=== PATIENT | male | born 1935 | race Caucasian/White ===

== ENCOUNTER 2021-06-13 10:53 | Emergency (ER) | payer MEDICARE, OTHER, SELFPAY ==
--- NOTE | ~2021-06-13 | XR_ITS ---
EXAMINATION: XR chest 2V EXAM DATE: 06/13/2021 11:30 INDICATION: Cough and fever. TECHNIQUE: Frontal and lateral projections of the chest obtained and reviewed. Comparison is made to prior examination from 01/28/2019. FINDINGS: Some scattered regions of post infectious residua suspected. No acute airspace disease. T here are no pleural effusions. The cardiomediastinal silhouette is within normal limits. There is n o pneumothorax suspected. Mild thoracic spondylosis. There is no significant interval change. IMPRESSION: No acute cardiopulmonary findings. Follow-up can be obtained if symptoms persist. Reviewed, dictated and finalized at location G. IMPRESSION: No acute cardiopulmonary findings. Follow-up can be obtained if sy mptoms persist.
[2021-06-13 11:02] VITALS: BP 106/61; PULSE 60; RESP 18; TEMP 37.1; O2SAT 98
--- NOTE | 2021-06-13 11:32 | ED.GENADULT ---
HPI - General Adult General Chief complaint: Upper Respiratory Infection Stated complaint: HEADACHE/CHEST CONGESTION/COUGH Time Seen by Provider: 06/13/21 11:20 Source: patient, family (spouse) and RN notes reviewed Mode of arrival: ambulatory Limitations: no limitations History of Present Illness HPI narrative: 85-year-old male presents with complains of dry cough and chest congestion, sneezing, sweats, and intermittent headache (not the worst of his life) for the past 2 days. [place] reports increasing symptoms this morning at approximately 05:30AM with temperature. Ibuprofen, last this morning with some relief. Cough with intermittent productive cough (green-yellow phlegm). No rhinorrhea. Nasal congestion. Denies sore throat. Fevers, highest 100.8F, orally with intermittent sweats. No drooling, neck or throat swelling. No chest pain, wheezing, or shortness of breath. Denies nausea, vomiting, and abdominal pain. Tolerating liquids well. Remains active. The patient reports he has not been diagnosed with COVID-19. The patient reports he received 2 [employer] COVID-19 vaccines. The patient reports he is not waiting for the results of a COVID-19 lab test. The patient reports he does not have weakness, fatigue, or myalgia. The patient reports he does not have any loss of smell or taste and diarrhea. Denies recent traveling. Denies concerns for COVID-19 or exposures. At this time, the patient is not suspected of having COVID-19. Some parts of this dictation were generated by voice recognition software and may contain typographical and/or grammatical inaccuracies. Related Data Home Medications Medication Instructions Recorded Confirmed Bacillus coagulans 10 billion cell 10 cell PO POST-TRANSFUSION 11/26/19 06/13/21 capsule,delayed release ascorbate calcium (vitamin C) 500 500 mg PO DAILY 11/26/19 06/13/21 mg tablet aspirin 81 mg tablet,delayed 81 mg PO DAILY 11/26/19 06/13/21 release calcium citrate 250 mg PO DAILY 11/26/19 06/13/21 cholecalciferol (vitamin D3) 25 1,000 unit PO DAILY 11/26/19 06/13/21 mcg (1,000 unit) capsule cyanocobalamin (vitamin B-12) 500 500 mcg PO DAILY 11/26/19 06/13/21 mcg tablet docusate sodium 100 mg capsule 100 mg PO .every other day cap 11/26/19 06/13/21 omega-3 fatty acids-fish oil 684 1 cap PO DAILY 11/26/19 06/13/21 mg-1,200 mg capsule,delayed release Allergies Allergy/AdvReac Type Severity Reaction Status Date / Time No Known Allergies Allergy Verified 06/13/21 11:12 Review of Systems Review of Systems: Narrative: CONSTITUTIONAL: Denies chills, fatigue. Complains of sweats, low-grade fever. EYES: Denies visual changes, redness, discharge. ENT: Complains of congestion. Denies rhinorrhea, sore throat, otalgia. CARDIOVASCULAR: Denies chest pain, palpitations, edema. RESPIRATORY: Denies dyspnea, wheezing. Complains of dry cough, chest congestion. GASTROINTESTINAL: Denies abdominal pain, nausea, vomiting, diarrhea. GENITOURINARY: Denies dysuria, hematuria, abnormal discharge. SKIN: Denies rash or itching. MUSCULOSKELETAL: Denies acute back pain, joint pain, or myalgia. NEUROLOGIC: Denies numbness or focal weakness. Complaints of FARIAS. PSYCHIATRIC: Denies anxiety or depression. All systems reviewed & are unremarkable except as noted in HPI and below. 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
== END 2021-06-13 12:04 | disposition home or self-care (01) ==
PROVIDERS: Emergency Provider Nurse Practitioner Family; PCP Family Medicine
DX: J06.9 Acute upper respiratory infection, unspecified (principal); H26.9 Unspecified cataract; Z86.73 Personal history of transient ischemic attack (TIA), and cerebral infarction without residual deficits; G47.30 Sleep apnea, unspecified; H40.9 Unspecified glaucoma
CPT/HCPCS: 71046; 99213; G0463

== ENCOUNTER 2021-06-18 10:52 | Outpatient (CLI) | payer MEDICARE, OTHER, SELFPAY ==
[2021-06-18 11:14] LABS: Basophils Percent Auto 0.2 % (0.2-1.2); Eosinophils Percent Auto 0.8 % (0-4.4); Hematocrit 38.3 % (42.0-52.0); Hemoglobin 13.1 g/dL (14.0-18.0); Immature Granulocyte Absolute 0.01 K/mm3 (0.00-0.031); Immature Granulocyte Percent A 0.2 % (0-0.5); Lymphocytes Absolute Auto 1.71 K/mm3 (0.9-3.2); Lymphocytes Percent Auto 33.4 % (18.3-44.2); Mean Corpuscular HGB Conc 34.2 g/dl (32-36); Mean Corpuscular Hemoglobin 33.7 pg (26-34); Mean Corpuscular Volume 98.5 fl (80-100); Mean Platelet Volume 9.5 fl (7.4-10.4); Monocytes Absolute Auto 0.4 K/mm3 (0.1-0.6); Monocytes Percent Auto 7.2 % (2.6-8.5); Neutrophils Percent Auto 58.2 % (45.5-73.1); Platelet Count Result 152 k/mm3 (150-375); Red Blood Count 3.89 M/mm3 (4.6-6.20); Red Cell Distribution Width 12.5 % (11.5-14.5); White Blood Count 5.1 K/mm3 (4.5-10.0)
[2021-06-18 11:30] LABS: Alanine Aminotransferase 14 U/L (4-50); Albumin Level 3.9 g/dL (3.5-5.1); Alkaline Phosphatase 69 U/L (38-126); Anion Gap 4 mmol/L (8-16); Aspartate Amino Transferase 30 U/L (17-59); Bilirubin,Total 0.8 mg/dL (0.2-1.3); Blood Urea Nitrogen 15 mg/dL (9-20); Calcium 9.3 mg/dL (8.4-10.2); Carbon Dioxide 33 mmol/L (22-30); Chloride 103 mmol/L (98-107); Estimated Glomerular Filt Rate > 60; Glucose 87 mg/dL (65-110); Potassium 4.1 mmol/L (3.4-5.0); Sodium 140 mmol/L (137-145)
== END 2021-06-18 10:53 | disposition home or self-care (01) ==
LOC: ANHLAB 10:54
PROVIDERS: PCP Family Medicine; Visit Provider Physician Assistant
DX: G47.33 Obstructive sleep apnea (adult) (pediatric) (principal); J06.9 Acute upper respiratory infection, unspecified
CPT/HCPCS: 36415; 80053; 85025

== ENCOUNTER 2021-12-03 07:45 | Outpatient (CLI) | payer MEDICARE, OTHER, SELFPAY ==
[2021-12-03 08:14] LABS: Hematocrit 40.8 % (42.0-52.0); Hemoglobin 14.2 g/dL (14.0-18.0); Mean Corpuscular HGB Conc 34.8 g/dl (32-36); Mean Corpuscular Hemoglobin 34.9 pg (26-34); Mean Corpuscular Volume 100.2 fl (80-100); Mean Platelet Volume 9.6 fl (7.4-10.4); Platelet Count Result 174 k/mm3 (150-375); Red Blood Count 4.07 M/mm3 (4.6-6.20); Red Cell Distribution Width 12.6 % (11.5-14.5); White Blood Count 4.2 K/mm3 (4.5-10.0)
[2021-12-03 08:26] LABS: Alanine Aminotransferase 16 U/L (4-50); Albumin Level 3.9 g/dL (3.5-5.1); Alkaline Phosphatase 71 U/L (38-126); Anion Gap 4 mmol/L (8-16); Aspartate Amino Transferase 26 U/L (17-59); Bilirubin,Total 0.6 mg/dL (0.2-1.3); Blood Urea Nitrogen 20 mg/dL (9-20); Calcium 9.3 mg/dL (8.4-10.2); Carbon Dioxide 30 mmol/L (22-30); Chloride 104 mmol/L (98-107); Cholesterol 132 mg/dL (0-200); Estimated Glomerular Filt Rate > 60; Glucose 101 mg/dL (65-110); HDL Direct 43 mg/dL; Potassium 3.6 mmol/L (3.4-5.0); Sodium 138 mmol/L (137-145); Triglycerides 71 mg/dL (<150)
[2021-12-03 08:37] LABS: LDL Cholesterol Direct 71 mg/dL
[2021-12-03 08:48] LABS: Add Urine Microscopic? YES; Appearance Urine Clear (Clear); Bilirubin Urine Negative (Negative); Blood Urine Negative (Negative); Color Urine Yellow (Yellow); Glucose Urine UA Negative (Negative); Ketones Urine Negative (Negative); Leukocyte Esterase Ur Negative LEU/UL (NEGATIVE); Nitrate Urine Negative (Negative); Protein Urine Negative (Negative); RBC Urine 0-2 /hpf (0-2); Specific Grav Ur 1.016 (1.001-1.035); Urobilinogen Urine Negative mg/dL (<2.0); WBC Urine 0-3 /hpf (0-3)
== END 2021-12-03 07:46 | disposition home or self-care (01) ==
LOC: ANHLAB 07:50
PROVIDERS: PCP Family Medicine; Visit Provider Family Medicine
DX: D64.9 Anemia, unspecified (principal); G47.33 Obstructive sleep apnea (adult) (pediatric); R53.83 Other fatigue; E78.5 Hyperlipidemia, unspecified
CPT/HCPCS: 36415; 80053; 80061; 81001; 84443; 85027

== ENCOUNTER 2021-12-15 08:19 | Outpatient (CLI) | payer MEDICARE, OTHER, SELFPAY ==
--- NOTE | ~2021-12-15 | MR_ITS ---
EXAMINATION: MR brain IAC wo/w con EXAM DATE: 12/15/2021 10:56 INDICATION: R51.9 - Headache, unspecified TECHNIQUE: Multi-sequential, multiplanar MR images of the brain, brainstem, internal auditory canals were obtained without contrast. Whole brain sagittal T1, axial diffusion, gradient echo (T2*), T1, T 2, FLAIR sequences obtained. High resolution coronal 3-D FIESTA, coronal T1 FSE, axial T1 FSPGR of t he internal auditory canals. Patient was then injected with 16 cc Multihance contrast intravenously. Postcontrast axial and coronal T1 weighted whole brain, axial and coronal high resolution T1 IAC seq uences obtained. Comparison is made to prior examination from 03/19/2016. FINDINGS: No evidence of mastoid or middle ear opacification. The 7th/8th cranial nerve complexes a re symmetric, normal in course and caliber. No cerebellopontine angle masses. Posterior fossa unrem arkable. Mild microangiopathy. There are no areas of restricted diffusion to suggest acute infarction. There is no acute hemorrhage seen on the T2*, a hemosiderin sensitive sequence. No intraparenchymal brain mass. The ventricles are normal in size. There are no extra-axial collections. Flow voids are seen in the cerebral arteries on the T2-weighted sequences consistent with their expected patency. The or bits are unremarkable. Soft tissue is unremarkable. There are no areas of abnormal enhancement on the postcontrast images. There is chronically opacified right sphenoid sinus, was opacified on prior study. Correlating with a CT scan from 2019 there is sinus wall thickening, another indication that this is chronic. Could be a mucocele. Uncertain whether or not this could be causing patient's headaches. IMPRESSION: 1. Chronic right sphenoid sinusitis or mucocele. 2. No acute intracranial findings. Reviewed, dictated and finalized at location A. [employer]
== END 2021-12-15 08:20 | disposition home or self-care (01) ==
LOC: ANHIMG 08:29
PROVIDERS: PCP Family Medicine; Visit Provider Internal Medicine Critical Care Medicine
DX: R51.9 Headache, unspecified (principal); J32.3 Chronic sphenoidal sinusitis
CPT/HCPCS: 70553; A9577

== ENCOUNTER 2023-01-15 08:12 | Outpatient (CLI) | payer MEDICARE, OTHER, SELFPAY ==
[2023-01-15 09:19] LABS: Add Urine Microscopic? NO; Appearance Urine Clear (Clear); Bilirubin Urine Negative (Negative); Blood Urine Negative (Negative); Color Urine Yellow (Yellow); Glucose Urine UA Negative (Negative); Hematocrit 39.1 % (42.0-52.0); Hemoglobin 13.3 g/dL (14.0-18.0); Ketones Urine Negative (Negative); Leukocyte Esterase Ur Negative LEU/UL (NEGATIVE); Mean Corpuscular Hemoglobin 33.2 pg (26-34); Mean Corpuscular Volume 97.5 fl (80-100); Mean Platelet Volume 10.3 fl (7.4-10.4); Nitrate Urine Negative (Negative); Platelet Count Result 186 k/mm3 (150-375); Protein Urine Negative (Negative); Red Blood Count 4.01 M/mm3 (4.6-6.20); Red Cell Distribution Width 12.7 % (11.5-14.5); Specific Grav Ur 1.015 (1.001-1.035); Urobilinogen Urine 0.2 mg/dL (<2.0); White Blood Count 4.3 K/mm3 (4.5-10.0); pH Urine 6.5 (5.0-9.0)
[2023-01-15 09:34] LABS: Alanine Aminotransferase 20 U/L (6-50); Albumin Level 3.8 g/dL (3.5-5.1); Alkaline Phosphatase 68 U/L (38-126); Anion Gap 2 mmol/L (8-16); Aspartate Amino Transferase 34 U/L (17-59); Bilirubin,Total 0.7 mg/dL (0.2-1.3); Blood Urea Nitrogen 16 mg/dL (9-20); Calcium 9.1 mg/dL (8.4-10.2); Carbon Dioxide 31 mmol/L (22-30); Chloride 107 mmol/L (98-107); Cholesterol 141 mg/dL (0-200); Estimated Glomerular Filt Rate > 60; Glucose 98 mg/dL (65-110); HDL Direct 45 mg/dL; Potassium 4.2 mmol/L (3.4-5.0); Sodium 140 mmol/L (137-145); Triglycerides 79 mg/dL (<150)
[2023-01-15 09:44] LABS: LDL Cholesterol Direct 69 mg/dL
== END 2023-01-15 08:13 | disposition home or self-care (01) ==
LOC: ANHLAB 08:19
PROVIDERS: PCP Family Medicine; Visit Provider Physician Assistant
DX: G47.33 Obstructive sleep apnea (adult) (pediatric) (principal); G47.52 REM sleep behavior disorder; G89.29 Other chronic pain; R51.9 Headache, unspecified; E78.5 Hyperlipidemia, unspecified; R53.83 Other fatigue
CPT/HCPCS: 36415; 80053; 80061; 81003; 84443; 85027

== ENCOUNTER 2023-01-17 10:56 | Outpatient (CLI) | payer MEDICARE, OTHER, SELFPAY ==
--- NOTE | ~2023-01-17 | XR_ITS ---
Thoracic spine: Clinical Indication: Back pain AP and lateral views were performed. Minimal anterior wedging deformities of T7 and T12 noted. No subluxation identified. The intervertebr al disc spaces appear normal. Paravertebral soft tissues appear normal. Impression: Minimal anterior wedging deformities of T7 and T12. Reviewed, dictated and finalized at [facility]. OPERATOR Impression: Minimal anterior wedging deformities of T7 and T12.
== END 2023-01-17 10:57 | disposition home or self-care (01) ==
PROVIDERS: PCP Family Medicine; Visit Provider Family Medicine
DX: M48.54XA Collapsed vertebra, not elsewhere classified, thoracic region, initial encounter for fracture (principal); M54.6 Pain in thoracic spine
CPT/HCPCS: 72070

== ENCOUNTER 2023-03-14 14:41 | Outpatient (CLI) | payer MEDICARE, OTHER, SELFPAY ==
--- NOTE | ~2023-03-14 | DEXA_ITS ---
Bone Density Report Name: KRISTOPHER JOHNSON Age: 87 Sex: Male Ethnicity: White Date of : 1935 Indication: screening for osteoporosis; height loss; prior fracture; Referring Provider: RAJENDRA OVALLE Study: Bone densitometry was performed. Exam Date: March 14, 2023 Accession number: [id number] Bone Density: Region BMD T-score Z-score Classification AP Spine(L1-L4) 0.967 -1.1 0.2 Osteopenia Femoral Neck (Left) 0.650 -2.1 -0.4 Osteopenia Total Hip (Left) 0.757 -1.8 -0.6 Osteopenia Femoral Neck (Right) 0.620 -2.3 -0.6 Osteopenia Total Hip (Right) 0.681 -2.3 -1.1 Osteopenia Total Hip Mean 0.719 -2.1 -0.9 Osteopenia World Health Organization criteria for BMD impression classify patients as: Normal (T-score at or above -1.0), Osteopenia (T-score between -1.0 and -2.5), or Osteoporosis (T-score at or below -2.5). 10-year Fracture Risk: FRAX not reported because: Prior hip or vertebral fracture Clinical Information Provided by Patient: Have had a previous hip or vertebral fracture Has had a low trauma fracture Has used the following medications: Vitamin D, Calcium Patient maximum height was 74 Does not regularly consume dairy products Impression: The patient has low bone mass, based on the Right Total Hip T-score. The patient has risk factors, including: previous fracture. Discussion: INCREASED RISK OF FRACTURE DUE TO HISTORY OF LOW TRAUMA FRACTURE. The patient's previous fracture puts the patient at high risk of a future fracture. In untreated patients, the risk of osteoporotic fracture increases approximately two-fold for each 1.0 SD decrease in T-score. Low bone density is not the only risk factor for fracture; also consider factors such as patient's age, frailty or poor health, risk of falling, risk of injury, previous osteoporotic fracture, family history of osteoporosis, cigarette smoking, low body weight, etc. Not everyone with a low trauma fracture has osteoporosis; osteomalacia and other metabolic bone disorders should also be considered. Patients who have osteoporosis should be evaluated for specific diseases and conditions (secondary causes) that may cause or contribute to bone loss and fracture risk. National Osteoporosis Foundation (NOF) recommends pharmacologic intervention for patients with a prior low trauma hip or vertebral fracture regardless of BMD T-score. The patient should follow a healthful lifestyle (good nutrition with adequate calcium and vitamin D, and appropriate weight-bearing exercise). Follow-Up: Consider a repeat BMD and Vertebral Fracture Assessment (VFA) exam in 2 years or sooner if medically necessary, to reassess this patient's status. Reported by: AMINA on 03/14/2023 3:00:00 PM. Mandi, arcelia
== END 2023-03-14 14:42 | disposition home or self-care (01) ==
LOC: ANHIMG 14:42
PROVIDERS: PCP Family Medicine; Visit Provider Family Medicine
DX: Z13.820 Encounter for screening for osteoporosis (principal); M85.89 Other specified disorders of bone density and structure, multiple sites
CPT/HCPCS: 77080

== ENCOUNTER 2023-03-23 09:16 | Outpatient (CLI) | payer MEDICARE, OTHER, SELFPAY ==
[2023-03-23 10:06] LABS: Alanine Aminotransferase 26 U/L (6-50); Alkaline Phosphatase 64 U/L (38-126); Anion Gap 2 mmol/L (8-16); Aspartate Amino Transferase 39 U/L (17-59); Bilirubin,Total 0.8 mg/dL (0.2-1.3); Blood Urea Nitrogen 18 mg/dL (9-20); Calcium 9.2 mg/dL (8.4-10.2); Carbon Dioxide 34 mmol/L (22-30); Chloride 103 mmol/L (98-107); Estimated Glomerular Filt Rate > 60; Glucose 101 mg/dL (65-110); Sodium 139 mmol/L (137-145)
== END 2023-03-23 09:17 | disposition home or self-care (01) ==
PROVIDERS: PCP Family Medicine; Visit Provider Physician Assistant
DX: M81.0 Age-related osteoporosis without current pathological fracture (principal)
CPT/HCPCS: 36415; 80053

== ENCOUNTER 2023-10-26 00:36 | Day surgery (SDC) | payer MEDICARE, OTHER, SELFPAY ==
[2023-10-21 09:28] VITALS: BMI 24.9
--- NOTE | 2023-10-24 10:37 | SUR.PREOP ---
Patient called regarding upcoming procedure. Reviewed preop instructions, appointment times, and procedure prep.
[2023-10-26 09:58] VITALS: BMI 24.4
[2023-10-26] MEDS: LACTATED RINGERS 1,000 ML 150 ML IV CONT (10:09)
--- NOTE | 2023-10-26 10:31 | WPDANESEPPF ---
Anes - Initial Pre Proc Eval Procedure: Operation Date: 10/26/23 10:30 Proposed Procedures p Esophagogastroduodenoscopy - Sp Jones MD Date/Time: 10/26/23 10:31 Surgeon: Sp Jones MD Pre Op Diagnosis: Dysphagia Patient Data Age: 88 Gender: M Height: 1.85 m Weight: 84 kg Allergies Allergy/AdvReac Type Severity Reaction Status Date / Time No Known Allergies Allergy Verified 10/26/23 09:41 Home Medications Medication Instructions Recorded Confirmed Type Bacillus coagulans 10 billion cell 10 cell PO POST-TRANSFUSION 11/26/19 10/26/23 History capsule,delayed release (Probiotic (B. coagulans)) ascorbate calcium (vitamin C) 500 500 mg PO DAILY 11/26/19 10/26/23 History mg tablet aspirin 81 mg tablet,delayed 81 mg PO DAILY 11/26/19 10/26/23 History release (Adult Aspirin Regimen) cyanocobalamin (vitamin B-12) 500 500 mcg PO DAILY 11/26/19 10/26/23 History mcg tablet (Vitamin B-12) docusate sodium 100 mg capsule 100 mg PO .every other day 11/26/19 10/26/23 History (Stool Softener) latanoprost 0.005 % eye drops 1 drop ophthalmic (eye) QPM #2.5 mL 11/26/19 10/26/23 Rx omega-3 fatty acids-fish oil 684 1 cap PO DAILY 11/26/19 10/26/23 History mg-1,200 mg capsule,delayed release cholecalciferol (vitamin D3) 25 1,000 unit PO BID 07/05/23 10/26/23 History mcg (1,000 unit) capsule magnesium 250 mg tablet 250 mg PO DAILY 07/05/23 10/26/23 History vit C 50 mg-E 15 unit-zinc cit 4.5 2 tablet PO DAILY 07/05/23 10/26/23 History mg-lutein 2.5 mg-zeaxan chew tablet (OcuvSnappy Chow [facility]) alendronate 70 mg tablet 70 mg PO WEEKLY #12 tabs 08/24/23 10/26/23 Rx clonazepam 1 mg tablet 1 mg PO QHS 90 days #90 tabs 08/26/23 10/26/23 Rx Patient hx anesthesia problems: none Family hx anesthesia problems: none Results Review: All pre-operative results and documents have been reviewed as part of the pre-operative evaluation. 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 Family History Family History Sibling Family history of cardiovascular disease Family history of malignant neoplasm Family history of malignant neoplasm of brain Mother Family history of Alzheimer's disease Migraines Father Family history of malignant neoplasm of kidney Grandparent Family history of malignant neoplasm of stomach Sibling Family history of malignant neoplasm of brain Family history of osteoporosis Acute myocardial infarction Family history of malignant neoplasm Family history of dementia Father Family history of malignant neoplasm of kidney Social History Social History Smoking status: Never smoker Second hand tobacco smoke exposure: Yes Alcohol intake: current Drinks per week: 1 Alcohol use details: at [employer] Substance use: never Substance use type: does not use Living arrangements: with family Occupation/Education: retired Gender identity (if verbalized by the patient): Male Sexual Orientation (if Verbalized by the Patient): Straight or Heterosexual Spiritual care concerns: No Anes - Eval Final PreProcedure Day of Procedure 10/26/23 10:31 Patient weight: normal Heart: bradycardia Lungs: clear to auscultation Neurological: alert and orie
--- NOTE | 2023-10-26 10:33 | PM.HPGS ---
History of Present Illness History of Present Illness Consent: Risks, benefits, and alternatives have been discussed and questions answered. Patient agrees to proceed with procedure. Chief complaint: Dysphagia Narrative: Jey Colón is a 88 year old male with intermittent dysphagia for years, never had egd Review of Systems Constitutional: Constitutional: Denies headache(s) and Denies weakness Eyes: Eyes: Denies blurry vision ENT: Reports Normal hearing present, Denies headache(s) and Denies neck pain Cardiovascular: Cardiovascular: Denies chest pain and Denies dyspnea Respiratory: Respiratory: Denies dyspnea Gastrointestinal: Gastrointestinal: Reports no additional gastrointestinal complaints Genitourinary: Genitourinary: Denies dysuria Musculoskeletal: Musculoskeletal: Denies neck pain Integumentary/Breasts: Skin/Breast: Denies dry skin Neurologic: Reports Normal hearing present, Denies headache(s) and Denies weakness Psychiatric: Psychiatric: Denies anxiety Endocrine: Endocrine: Denies change in body appearance Hematologic/Lymphatic: Hematologic/Lymphatic: Denies easy bleeding Allergic/Immunologic: Allergic/Immunologic: Denies urticaria [facility] Past Medical History Medical History (Updated 10/26/23 @ 10:34 by Sp Jones MD) Cataract Chronic headache disorder Dysphagia Family history of prostate problems Glaucoma H/O TIA (transient ischemic attack) and stroke MARCO (obstructive sleep apnea) CPAP REM behavioral disorder Surgical History Surgical History History of adenoidectomy History of hernia surgery umbilical X2 and bilateral groin History of tonsillectomy History of transurethral resection of prostate Hx of sinus surgery 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 Family History Family History Sibling Family history of cardiovascular disease Family history of malignant neoplasm Family history of malignant neoplasm of brain Mother Family history of Alzheimer's disease Migraines Father Family history of malignant neoplasm of kidney Grandparent Family history of malignant neoplasm of stomach Sibling Family history of malignant neoplasm of brain Family history of osteoporosis Acute myocardial infarction Family history of malignant neoplasm Family history of dementia Father Family history of malignant neoplasm of kidney Social History Social History Smoking status: Never smoker Second hand tobacco smoke exposure: Yes Alcohol intake: current Drinks per week: 1 Alcohol use details: at [employer] Substance use: never Substance use type: does not use Living arrangements: with family Occupation/Education: retired Gender identity (if verbalized by the patient): Male Sexual Orientation (if Verbalized by the Patient): Straight or Heterosexual Spiritual care concerns: No Meds Home Medications and Allergies Home Medications Medication Instructions Recorded Confirmed Type Bacillus coagulans 10 billion cell 10 cell PO POST-TRANSFUSION 11/26/19 10/26/23 History capsule,delayed release (Probiotic (B. coagulans)) ascorbate calcium (vitamin C) 500 500 mg PO DAILY 11/26/19 10/26/23 History mg tablet aspirin 81 mg tablet,delayed 81 mg PO DAILY 11/26/19 10/26/23 History release (Adult Aspirin Regimen) cyanocobalamin (vitamin B-12) 500 500 mcg PO DAILY 11/26/19 10/26/23 History mcg tablet (Vitamin B-12) docusate sodium 100 mg capsule 100 mg PO .every other day 11/26/19 10/26/23 History (Stool Softener) latanoprost 0.005 % eye drops 1 drop ophthalmic (eye) QPM #2.5 mL 11/26/19 10/26/23 Rx omega-3 fatty acids-fish oil 684 1 cap PO DAILY 11/26/19 10/26/23 History mg-1,200 mg capsule,delayed release cholecalciferol (vitamin D3)
[2023-10-26 10:49] VITALS: BP 93/52; PULSE 55; RESP 24; O2SAT 100
[2023-10-26 10:59] VITALS: BP 90/53; PULSE 51; RESP 14; O2SAT 100
[2023-10-26 11:09] VITALS: BP 98/67; PULSE 69; RESP 17; O2SAT 100
== END 2023-10-26 11:24 | disposition home or self-care (01) ==
PROVIDERS: PCP Family Medicine; Visit Provider Internal Medicine Gastroenterology
PROC: 0DJ08ZZ Inspection of Upper Intestinal Tract, Via Natural or Artificial Opening Endoscopic (ICD-10-PCS; CPT 43235; principal; 2023-10-26 10:30)
DX: K22.2 Esophageal obstruction (principal); K21.00 Gastro-esophageal reflux disease with esophagitis, without bleeding; K44.9 Diaphragmatic hernia without obstruction or gangrene; K29.50 Unspecified chronic gastritis without bleeding; Z79.82 Long term (current) use of aspirin; G47.33 Obstructive sleep apnea (adult) (pediatric); Z86.73 Personal history of transient ischemic attack (TIA), and cerebral infarction without residual deficits
CPT/HCPCS: 43249; 43239; 88305; C1726; J2704; J7120

== ENCOUNTER 2024-07-04 08:15 | Outpatient (CLI) | payer MEDICARE, SELFPAY ==
[2024-07-04 08:38] LABS: Basophils Percent Auto 0.8 % (0.2-1.2); Eosinophils Absolute Auto 0.1 K/mm3 (0-0.3); Eosinophils Percent Auto 1.8 % (0-4.4); Hematocrit 35.2 % (42.0-52.0); Hemoglobin 11.1 g/dL (14.0-18.0); Lymphocytes Absolute Auto 1.48 K/mm3 (0.9-3.2); Lymphocytes Percent Auto 38.2 % (18.3-44.2); Mean Corpuscular HGB Conc 31.5 g/dl (32-36); Mean Corpuscular Hemoglobin 26.8 pg (26-34); Mean Platelet Volume 9.8 fl (7.4-10.4); Monocytes Absolute Auto 0.3 K/mm3 (0.1-0.6); Neutrophils Percent Auto 51.2 % (45.5-73.1); Platelet Count Result 191 k/mm3 (150-375); Red Blood Count 4.14 M/mm3 (4.6-6.20); Red Cell Distribution Width 15.9 % (11.5-14.5); White Blood Count 3.9 K/mm3 (4.5-10.0)
[2024-07-04 08:40] LABS: Add Urine Microscopic? YES; Appearance Urine Clear (Clear); Bilirubin Urine Negative (Negative); Blood Urine Negative (Negative); Color Urine Dark Yellow (Yellow); Glucose Urine UA Negative (Negative); Ketones Urine Negative (Negative); Leukocyte Esterase Ur Negative LEU/UL (Negative); Nitrate Urine Negative (Negative); Protein Urine Negative (Negative)
[2024-07-04 08:51] LABS: Alanine Aminotransferase 16 U/L (6-50); Albumin Level 3.9 g/dL (3.5-5.1); Alkaline Phosphatase 64 U/L (38-126); Anion Gap 6 mmol/L (4-12); Aspartate Amino Transferase 26 U/L (17-59); Bilirubin,Total 0.3 mg/dL (0.2-1.3); Blood Urea Nitrogen 21 mg/dL (9-20); Carbon Dioxide 30 mmol/L (22-30); Chloride 104 mmol/L (98-107); Cholesterol 145 mg/dL (0-200); Estimated Glomerular Filt Rate > 60; Glucose 98 mg/dL (65-110); HDL Direct 51 mg/dL; Iron 33 ug/dL (49-181); Potassium 3.9 mmol/L (3.4-5.0); Sodium 140 mmol/L (137-145); Triglycerides 72 mg/dL (<150)
[2024-07-04 09:00] LABS: Percent Iron Saturation 8 % (20-50)
[2024-07-04 09:01] LABS: LDL Cholesterol Direct 71 mg/dL
[2024-07-04 09:26] LABS: Ferritin 6.46 ng/mL (11.1-264)
[2024-07-04 09:56] LABS: Folic Acid 17.7 ng/mL (2.76->20)
== END 2024-07-04 08:16 | disposition home or self-care (01) ==
PROVIDERS: PCP Family Medicine; Visit Provider Physician Assistant
DX: D64.9 Anemia, unspecified (principal); E78.2 Mixed hyperlipidemia; I10 Essential (primary) hypertension
CPT/HCPCS: 36415; 80053; 80061; 81001; 82607; 82728; 82746; 83540; 83550; 84443; 85025

== ENCOUNTER 2024-07-17 01:29 | Day surgery (SDC) | payer MEDICARE, SELFPAY ==
[2024-06-29 11:27] VITALS: BMI 24.1
--- NOTE | 2024-07-17 10:02 | WPDANESEPPF ---
Anes - Initial Pre Proc Eval Procedure: Operation Date: 07/17/24 11:30 Proposed Procedures p Esophagogastroduodenoscopy - Sp Jones MD Date/Time: 07/17/24 10:02 Surgeon: Sp Jones MD Pre Op Diagnosis: Dysphagia, Esophageal obstruction Patient Data Age: 88 Gender: M Height: 1.85 m Weight: 83.1 kg Allergies Allergy/AdvReac Type Severity Reaction Status Date / Time No Known Allergies Allergy Verified 07/03/24 10:23 Home Medications Medication Instructions Recorded Confirmed Type Bacillus coagulans 10 billion cell 10 cell PO POST-TRANSFUSION 11/26/19 07/17/24 History capsule,delayed release (Probiotic (B. coagulans)) ascorbate calcium (vitamin C) 500 500 mg PO DAILY 11/26/19 07/17/24 History mg tablet aspirin 81 mg tablet,delayed 81 mg PO DAILY 11/26/19 07/17/24 History release (Adult Aspirin Regimen) cyanocobalamin (vitamin B-12) 500 500 mcg PO DAILY 11/26/19 07/17/24 History mcg tablet (Vitamin B-12) docusate sodium 100 mg capsule 100 mg PO .every other day 11/26/19 07/17/24 History (Stool Softener) latanoprost 0.005 % eye drops 1 drop ophthalmic (eye) QPM #2.5 mL 11/26/19 07/17/24 Rx omega-3 fatty acids-fish oil 684 1 cap PO DAILY 11/26/19 07/17/24 History mg-1,200 mg capsule,delayed release cholecalciferol (vitamin D3) 25 1,000 unit PO BID 07/05/23 07/17/24 History mcg (1,000 unit) capsule magnesium 250 mg tablet 250 mg PO DAILY 07/05/23 07/17/24 History vit C 50 mg-E 15 unit-zinc cit 4.5 2 tablet PO DAILY 07/05/23 07/17/24 History mg-lutein 2.5 mg-zeaxan chew tablet ([facility]) alendronate 70 mg tablet 70 mg PO WEEKLY #12 tabs 01/24/24 07/17/24 Rx omeprazole 40 mg capsule,delayed 40 mg PO .daily #90 caps 04/19/24 08/27/24 Rx release clonazepam 1 mg tablet 1 mg PO QHS 90 days #90 tabs 07/09/24 07/17/24 Rx Patient hx anesthesia problems: none Family hx anesthesia problems: none Results Review: All pre-operative results and documents have been reviewed as part of the pre-operative evaluation. 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 Family History Family History Sibling Family history of cardiovascular disease Family history of malignant neoplasm Family history of malignant neoplasm of brain Mother Family history of Alzheimer's disease Migraines Father Family history of malignant neoplasm of kidney Grandparent Family history of malignant neoplasm of stomach Sibling Family history of malignant neoplasm of brain Family history of osteoporosis Acute myocardial infarction Family history of malignant neoplasm Family history of dementia Father Family history of malignant neoplasm of kidney Social History Social History Smoking status: Never smoker Second hand tobacco smoke exposure: Yes Alcohol intake: current Drinks per week: 1 Alcohol use details: at [employer] Substance use: never Substance use type: does not use Living arrangements: with family Occupation/Education: retired Gender identity (if verbalized by the patient): Male Sexual Orientation (if Verbalized by the Patient): Straight or Heterosexual Spiritual care concerns: No Anes - Eval Final PreProcedure Day of Pr
[2024-07-17 10:03] VITALS: BP 118/66; PULSE 61; RESP 18; TEMP 36.4; O2SAT 99
[2024-07-17] MEDS: LACTATED RINGERS 1,000 ML 150 ML IV CONT (10:11)
--- NOTE | 2024-07-17 10:39 | PM.HPGS ---
History of Present Illness History of Present Illness Consent: Risks, benefits, and alternatives have been discussed and questions answered. Patient agrees to proceed with procedure. Chief complaint: Dysphagia, Esophageal obstruction Narrative: Jey Colón is a 88 year old male here for egd, had dysphagia to solids then I did EGD 10/2023 that showed non-obstructive esophageal ring dilated up to 18mm balloon, mild esophagitis and 1 cm HH, also had gastritis confirmed by bx. 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 Family History Family History Sibling Family history of cardiovascular disease Family history of malignant neoplasm Family history of malignant neoplasm of brain Mother Family history of Alzheimer's disease Migraines Father Family history of malignant neoplasm of kidney Grandparent Family history of malignant neoplasm of stomach Sibling Family history of malignant neoplasm of brain Family history of osteoporosis Acute myocardial infarction Family history of malignant neoplasm Family history of dementia Father Family history of malignant neoplasm of kidney Social History Social History Smoking status: Never smoker Second hand tobacco smoke exposure: Yes Alcohol intake: current Drinks per week: 1 Alcohol use details: at [facility] Substance use: never Substance use type: does not use Living arrangements: with family Occupation/Education: retired Gender identity (if verbalized by the patient): Male Sexual Orientation (if Verbalized by the Patient): Straight or Heterosexual Spiritual care concerns: No Meds Home Medications and Allergies Home Medications Medication Instructions Recorded Confirmed Type Bacillus coagulans 10 billion cell 10 cell PO POST-TRANSFUSION 11/26/19 07/17/24 History capsule,delayed release (Probiotic (B. coagulans)) ascorbate calcium (vitamin C) 500 500 mg PO DAILY 11/26/19 07/17/24 History mg tablet aspirin 81 mg tablet,delayed 81 mg PO DAILY 11/26/19 07/17/24 History release (Adult Aspirin Regimen) cyanocobalamin (vitamin B-12) 500 500 mcg PO DAILY 11/26/19 07/17/24 History mcg tablet (Vitamin B-12) docusate sodium 100 mg capsule 100 mg PO .every other day 11/26/19 07/17/24 History (Stool Softener) latanoprost 0.005 % eye drops 1 drop ophthalmic (eye) QPM #2.5 mL 11/26/19 07/17/24 Rx omega-3 fatty acids-fish oil 684 1 cap PO DAILY 11/26/19 07/17/24 History mg-1,200 mg capsule,delayed release cholecalciferol (vitamin D3) 25 1,000 unit PO BID 07/05/23 07/17/24 History mcg (1,000 unit) capsule magnesium 250 mg tablet 250 mg PO DAILY 07/05/23 07/17/24 History vit C 50 mg-E 15 unit-zinc cit 4.5 2 tablet PO DAILY 07/05/23 07/17/24 History mg-lutein 2.5 mg-zeaxan chew tablet ([facility]) alendronate 70 mg tablet 70 mg PO WEEKLY #12 tabs 01/24/24 07/17/24 Rx omeprazole 40 mg capsule,delayed 40 mg PO .daily #90 caps 03/09/24 07/17/24 Rx release clonazepam 1 mg tablet 1 mg PO QHS 90 days #90 tabs 07/09/24 07/17/24 Rx Allergies Allergy/AdvReac Type Severity Reaction Status Date / Time No Kn
[2024-07-17 10:55] VITALS: BP 88/56; RESP 15; O2SAT 98
[2024-07-17 11:05] VITALS: BP 91/52; PULSE 45; RESP 12; O2SAT 99
[2024-07-17 11:15] VITALS: BP 99/55; PULSE 49; RESP 16; O2SAT 100
--- NOTE | 2024-07-17 12:11 | SUR.PHASEII ---
Patient waiting on Med[facility] ([id number])
== END 2024-07-17 12:11 | disposition home or self-care (01) ==
PROVIDERS: PCP Family Medicine; Visit Provider Internal Medicine Gastroenterology
PROC: 0DJ08ZZ Inspection of Upper Intestinal Tract, Via Natural or Artificial Opening Endoscopic (ICD-10-PCS; CPT 43235; principal; 2024-07-17 11:30)
DX: K22.2 Esophageal obstruction (principal); R51.9 Headache, unspecified; I25.2 Old myocardial infarction; G47.33 Obstructive sleep apnea (adult) (pediatric); G47.52 REM sleep behavior disorder; Z79.82 Long term (current) use of aspirin; Z79.83 Long term (current) use of bisphosphonates; Z99.89 Dependence on other enabling machines and devices; Z98.890 Other specified postprocedural states; Z85.828 Personal history of other malignant neoplasm of skin; Z86.73 Personal history of transient ischemic attack (TIA), and cerebral infarction without residual deficits; Z80.8 Family history of malignant neoplasm of other organs or systems; Z80.51 Family history of malignant neoplasm of kidney; Z80.0 Family history of malignant neoplasm of digestive organs; Z82.49 Family history of ischemic heart disease and other diseases of the circulatory system
CPT/HCPCS: 43249; C1726; J2001; J2704; J7120

== ENCOUNTER 2024-08-29 14:31 | Outpatient (CLI) | payer MEDICARE, SELFPAY ==
[2024-08-29 14:58] LABS: Basophils Percent Auto 0.8 % (0.2-1.2); Eosinophils Absolute Auto 0.1 K/mm3 (0-0.3); Eosinophils Percent Auto 3.3 % (0-4.4); Hematocrit 36.8 % (42.0-52.0); Hemoglobin 11.6 g/dL (14.0-18.0); Immature Granulocyte Absolute 0.01 K/mm3 (0.00-0.031); Immature Granulocyte Percent A 0.3 % (0-0.5); Lymphocytes Absolute Auto 1.14 K/mm3 (0.9-3.2); Lymphocytes Percent Auto 29.1 % (18.3-44.2); Mean Corpuscular HGB Conc 31.5 g/dl (32-36); Mean Corpuscular Hemoglobin 26.5 pg (26-34); Mean Corpuscular Volume 84.2 fl (80-100); Mean Platelet Volume 9.6 fl (7.4-10.4); Monocytes Absolute Auto 0.3 K/mm3 (0.1-0.6); Monocytes Percent Auto 8.4 % (2.6-8.5); Neutrophils Absolute Auto 2.3 K/mm3 (1.3-6.7); Neutrophils Percent Auto 58.1 % (45.5-73.1); Platelet Count Result 215 k/mm3 (150-375); Red Blood Count 4.37 M/mm3 (4.6-6.20); Red Cell Distribution Width 17.4 % (11.5-14.5); White Blood Count 3.9 K/mm3 (4.5-10.0)
[2024-08-29 16:41] LABS: Iron 44 ug/dL (49-181)
[2024-08-29 16:42] LABS: Alanine Aminotransferase 18 U/L (6-50); Albumin Level 4.2 g/dL (3.5-5.1); Alkaline Phosphatase 63 U/L (38-126); Anion Gap 4 mmol/L (4-12); Aspartate Amino Transferase 29 U/L (17-59); Bilirubin,Total 0.4 mg/dL (0.2-1.3); Blood Urea Nitrogen 17 mg/dL (9-20); Calcium 9.9 mg/dL (8.4-10.2); Carbon Dioxide 31 mmol/L (22-30); Chloride 105 mmol/L (98-107); Estimated Glomerular Filt Rate > 60; Glucose 102 mg/dL (65-110); Potassium 3.8 mmol/L (3.4-5.0); Sodium 140 mmol/L (137-145)
[2024-08-29 16:50] LABS: Percent Iron Saturation 10 % (20-50)
[2024-09-02 09:59] LABS: Methylmalonic Acid 140 nmol/L (85-423)
[2024-09-07 13:43] LABS: Soluble Transferrin Receptor 2.89 mg/L (0.76-1.76)
== END 2024-08-29 14:32 | disposition home or self-care (01) ==
LOC: ANHLAB 14:33
PROVIDERS: PCP Family Medicine; Visit Provider Internal Medicine Hematology & Oncology
DX: D64.9 Anemia, unspecified (principal)
CPT/HCPCS: 36415; 80053; 82607; 82728; 83540; 83550; 83921; 84238; 85025; 86038; 86039

== ENCOUNTER 2024-10-31 11:02 | Outpatient (CLI) | payer MEDICARE, SELFPAY ==
[2024-10-31 12:20] LABS: Hematocrit 43.4 % (42.0-52.0); Hemoglobin 14.8 g/dL (14.0-18.0); Mean Corpuscular HGB Conc 34.1 g/dl (32-36); Mean Corpuscular Hemoglobin 31.4 pg (26-34); Mean Corpuscular Volume 92.1 fl (80-100); Mean Platelet Volume 10.9 fl (7.4-10.4); Platelet Count Result 170 k/mm3 (150-375); Red Blood Count 4.71 M/mm3 (4.6-6.20); Red Cell Distribution Width 19.7 % (11.5-14.5); White Blood Count 4.8 K/mm3 (4.5-10.0)
[2024-10-31 12:40] LABS: Iron 96 ug/dL (49-181)
[2024-10-31 12:51] LABS: Percent Iron Saturation 26 % (20-50)
== END 2024-10-31 11:03 | disposition home or self-care (01) ==
PROVIDERS: PCP Family Medicine; Visit Provider Internal Medicine Hematology & Oncology
DX: D64.9 Anemia, unspecified (principal)
CPT/HCPCS: 36415; 82728; 83540; 83550; 85027

== ENCOUNTER 2024-11-24 12:05 | Outpatient (CLI) | payer MEDICARE, SELFPAY ==
--- NOTE | ~2024-11-24 | MR_ITS ---
MRI of the brain Clinical History: Chronic vertigo Technique: Axial and sagittal T1-weighted images were acquired. These were followed by axial T2-weigh ivonne, diffusion weighted, gradient, and FLAIR images. Thin cut coronal and axial T1-weighted and T2-we ighted images were performed through the internal auditory canals. Following intravenous administrati on of 17 cc MultiHance gadolinium, T1-weighted fat-sat imaging was performed through the brain in the axial and coronal planes. Thin cut T1-weighted postcontrast imaging was performed through the international marketing manager al auditory canals in the axial and coronal planes. COMPARISON: 12/15/2021 Findings: There is no acute infarct, intracranial hemorrhage, mass lesion. No significant signal abno rmality seen in the brain parenchyma. Ventricles and subarachnoid spaces are mildly dilated. Orbits are unremarkable. Probable chronic opac ification the right sphenoid sinus. Paranasal sinuses and mastoid air cells otherwise are essentially clear. Distal right vertebral flow-void not well seen. Remaining major intracranial flow voids appea r intact. Sagittal midline structures are intact. No abnormal mass lesion seen at the CP angle regions or inter nal auditory canals. No abnormal postcontrast enhancement identified. IMPRESSION: Distal right vertebral artery flow-void not clearly seen, possibly due to proximal occlusion or hypop lastic vessel. Chronic opacification of the right sphenoid sinus. No other significant findings. Reviewed, dictated and finalized at [facility]. R BARKER OPERATOR IMPRESSION: Distal right vertebral artery flow-void not clearly seen, possibly due to proxi mal occlusion or hypoplastic vessel. Chronic opacification of the right sphenoid sinus. No other significant findings.
== END 2024-11-24 12:06 | disposition home or self-care (01) ==
PROVIDERS: PCP Family Medicine; Visit Provider Physician Assistant
DX: H53.2 Diplopia (principal); R42 Dizziness and giddiness; R51.9 Headache, unspecified; G89.29 Other chronic pain; H93.19 Tinnitus, unspecified ear
CPT/HCPCS: 70553; A9577

== ENCOUNTER 2024-12-12 14:35 | Outpatient (CLI) | payer MEDICARE, SELFPAY ==
--- NOTE | ~2024-12-12 | US_ITS ---
EXAMINATION: US carotid duplex BI DATE: 12/12/2024 15:38 INDICATION: Personal history of transient ischemic attack. TECHNIQUE: Grayscale, color Doppler, and pulsed Doppler images of the cervical carotid arteries were obtained. The degree of vessel stenosis is placed in one of the following categories: normal, <50%, 5 0-69%, >=70% but less than near-occlusion, near-occlusion, or total occlusion. Note that percent sten osis relative to normal distal artery lumen diameter is indirectly measured from velocity measurement s as described by Kenneth, et al. Radiology 2003; 229:340-346. COMPARISON: None. FINDINGS: RIGHT: The right common carotid artery (CCA) peak systolic velocity (PSV) is 97 cm/s. The right internal car otid artery (ICA) PSV is 55 cm/s. The right ICA end-diastolic velocity (EDV) is 13 cm/s. The right IC A/CCA PSV ratio is 0.7. Grayscale and color Doppler images yield an estimate of 0% diameter reduction from plaque in the ICA. There is retrograde flow in the right vertebral artery. LEFT: The left CCA PSV is 148 cm/s. The left ICA PSV is 146 cm/s. The left ICA EDV is 33 cm/s. The left ICA /CCA PSV ratio is 1.0. Grayscale and color Doppler images yield an estimate of 0% diameter reduction from plaque in the ICA. There is antegrade flow in the left vertebral artery. IMPRESSION: 1. Normal internal carotid arteries. 2. 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 Reviewed, dictated and finalized at location [facility]. OF [employer]
--- OUTSIDE RECORDS SUMMARY | 2024-12-14 02:19 | XMS_ITS | Continuity of Care Document ---
Author Name [facility] Organization [facility] Care Team Providers Care Combine Mechanic Name Role Phone [facility] Unavailable Unavailable Problems Combined list of problems from [facility] and [facility] facilities. It does not include entries that were removed or entered in error. Problem Status Onset Date Problem Type Date of Resolution Comments Source Glaucoma Active Condition [facility] Pain of right ankle joint Active Condition [facility] Persistent sinus bradycardia Active Condition [facility] Right hip pain Active Condition [facility] Sensorineural hearing loss of bilateral ears Active Condition [facility] Sleep apnea Active Condition [facility] Sleep disorder Active Condition [facility] Tinnitus Active Condition [facility] Diagnosis: ICD-10-CM G47.33 Obstructive sleep apnea (adult) (pediatric) Active Diagnosis [facility] Diagnosis: ICD-10-CM H90.3 Sensorineural hearing loss, bilateral Active Diagnosis [facility] Diagnosis: ICD-10-CM R51.9 Headache, unspecified Active Diagnosis [facility] Medications Combined list of outpatient medications from [facility] facilities.Medications provided include 1) outpatient medications from the last 15 months, and 2) patient-reported medications. Medication Details Route Status Patient Instructions Prescription Expires Prescription Number Last Dispense Date Ordering Provider Order Date Order Qty Source ALENDRONATE 70MG TAB TAKE ONE TABLET BY MOUTH EVERY WEEK ORAL ACTIVE Mary TOLLIVER 2023 [facility] ASCORBIC ACID 500MG TAB TAKE ONE TABLET BY MOUTH ONCE A DAY ORAL ACTIVE WEEKS,LEONOR A L 2018 [facility] ASPIRIN 81MG TAB,EC TAKE ONE TABLET BY MOUTH ONCE A DAY ORAL ACTIVE WEEKS,LEONOR A L 2018 [facility] BENZONATATE 100MG CAP TAKE 1 CAPSULE BY MOUTH THREE TIMES A DAY NEEDED ORAL ACTIVE WEEKS,LEONOR Luong 2020 [facility] CALCIUM 200MG (CA CITRATE-950 MG) TAB TAKE ONE TABLET BY MOUTH BEFORE LUNCH ORAL ACTIVE WEEKS,LEONOR Luong 2018 [facility] CHOLECALCIF GURJIT 25MCG (1,000UNIT) TAB TAKE ONE TABLET BY MOUTH ONCE A DAY ORAL ACTIVE WEEKS,LEONOR Luong 2018 [facility] CLONAZEPAM TAB TAKE 1.5 BY MOUTH THREE TIMES A DAY NEEDED ORAL ACTIVE WEEKS,LEONOR Luong 2018 [facility] CYANOCOBALA MIN 500MCG TAB TAKE ONE TABLET BY MOUTH ONCE A DAY ORAL ACTIVE WEEKS,LEONOR Luong 2019 [facility] FERROUS SO4 325MG TAB TAKE ONE TABLET BY MOUTH TWICE A DAY ORAL ACTIVE UNRULY,S GinoZANNE 2023 [facility] FISH OIL 1000MG (500MG DHA/EPA) CAP,ORAL TAKE 1 CAPSULE BY MOUTH TWICE A DAY ORAL ACTIVE WEEKS,LEONOR Luong 2018 [facility] LACTOBACILL US ACIDOPHILUS TAB TAKE ONE TABLET BY MOUTH ORAL ACTIVE WEEKS,LEONOR Luong 2020 [facility] LATANOPROST 0.005% SOLN,OPH INSTILL 1 DROP IN BOTH EYES EVERY EVENING OPHTHA LMIC ACTIVE WEEKS,LEONOR Luong 2018 [facility] MAGNESIUM OXIDE TAB TAKE 250MG BY MOUTH ORAL ACTIVE WEEKS,LEONOR Luong 2019 [facility] MULTIVIT/OP HTH AREDS2/LUTE IN/ZEAXANTH IN CAP/TAB TAKE 1 CAP/TAB BY MOUTH ONCE A DAY ORAL ACTIVE WEEKS,LEONOR Luong 2018 [facility] OMEPRAZOLE 40MG CAP,EC TAKE 1 CAPSULE BY MOUTH EVERY MORNING BEFORE A MEAL ORAL ACTIVE DEPAULO,S UZANNE 2023 [facility] PROBIOTIC COMBINATION CAP/TAB TAKE 1 CAPSULE BY MOUTH ORAL ACTIVE WEEKS,LEONOR Luong 2018 [facility] Immunizations Combined list of available immunizations from the Department of Defense and Veterans Affairs facilities. Immunization Series Date Given Administered By Site Reaction Lot Number CVX Code Drug Remote Encoding Center Manager Status Comments Source COVID-19 (PFIZER), MRNA, LNP-S, PF, 30 MCG/0.3 ML DOSE 2 2020 208 complet ed PFR; [id number]; 1 [facility] COVID-19 (PFIZER), MRNA, LNP-S, PF, 30 MCG/0.3 ML DOSE 1 2020 208 complet ed PFR; [id number]; 1 [facility] TDAP 2018 115 complet ed Right Deltoid [facility] ZOSTER RECOMBINANT 2 2017 187 complet ed documenta tion per Veterans health records. [facility] ZOSTER RECOMBINANT 1 2017 187 complet ed as noted below [facility] PNEUMOCOCCAL CONJUGATE PCV 13 2014 133 complet ed per [facility] health records [facility] PNEUMOCOCCAL POLYSACCHARID E PPV23 2007 33 complet ed [facility] Vital Signs Combined list of inpatient and outpatient Vital Signs from Department of Defense and Veterans Affairs, ranging from 12 months to all on record, depending upon the facility. Vital Sign Value Date Comments Source SYSTOLIC BLOOD PRESSURE 132 09/11/2024 09:29:02 [facility] DIASTOLIC BLOOD PRESSURE 64 09/11/2024 09:29:02 [facility] PULSE OXIMETRY 98 09/11/2024 09:29:02 S Elana [facility] WEIGHT 190.6 09/11/2024 09:29:02 [facility] BMI 25kg/m2 09/11/2024 09:29:02 [facility] PAIN 0 09/11/2024 09:29:02 [facility] HEIGHT 74 09/11/2024 09:29:02 [facility] TEMPERATURE 97.6 09/11/2024 09:29:02 [facility] PULSE 57 09/11/2024 09:29:[address] [facility] RESPIRATION 18 09/11/2024 09:29:02 [facility] Encounters Combined list of: 1) Encounters from Department of [facility] facilities going back up to thelast 18 months. 2) Encounters from the Department of [facility] facilities going back up to 280 months. Location Location Details Encounter Type Encounter Number Reason For Visit Attending Provider ADM Date DC Date Status Disposition Source [facility] Outpatient Encounter [id number] 06/21 [facility] Outpatient Encounter [id number] 07/26 [facility] OFFICE O/P EST MOD 30 MIN [id number] Diagnos is: ICD-10- CM R51.9 Headach e, unspeci fied
JOSH TOLLIVER 09/11 [facility] Outpatient Encounter [id number] BONNIE HATCH 10/09 [facility] EAR MOLD/INSER T [id number] Diagnos is: ICD-10- CM H90.3 Sensori neural hearing loss, bilater al
LEON CASANOVA 11/01 [facility] Outpatient Encounter [id number] 11/19 [facility] OFF/OP EST MAY X REQ PHY/QHP [id number] Diagnos is: ICD-10- CM G47.33 Obstruc tive sleep apnea (adult) ([facility])
JOSE,TALITA LLY G 12/07 [facility] Social History Combined list of available smoking, tobacco, and other social history from Department of Defense and Veterans Affairs facilities. Social History Type Response Date Comment Sour e Tobacco smoking status NHIS VA-TOBACCO NEVER USED 09/11/2024 [facility] History of tobacco use VA-TOBACCO NEVER USED 07/29/2021 [facility] Plan of Care List of future care activities from Department of Veterans Affairs facilities. Additional future care activities may be listed in the Assessment and Plan section. Date/Time Care Activity Care Activity Detail Facili ty 02/05/2025 AMBULATORY - SURGERY AM[facility]
--- OUTSIDE RECORDS SUMMARY | 2024-12-14 02:19 | XMS_ITS | Encounter Summary ---
Author Name [facility] Organization [facility] Address [address] [place] [address] Care Team Providers Care Exhaust And Muffler Fitter Name Role Phone MARIAH TOLLIVER Primary Care Provider Unavailab le Insurance Providers: All historical and current Section Date Range: From patient's date of to the date document was created. This section includes the names of all active insurance providers for the patient. Insurance Provider Type of Coverage Plan Name Start of Policy Coverage End of Policy Coverage Group Number Member ID Insurance Provider's Telephone Number Policy Morejon's Name Patient's Relationship to Policy Morejon [employer] M[employer]AL HE[employer] PRUDE NTIAL INSUR [facility] Nov 21, 2016 [id number] [phone] KRISTOPHER JOHNOSN PATIENT MEDICARE (WNR) MEDICARE (M) PART A Jul 22, 2001 PART A [id number] KRISTOPHER JOHNSON PATIENT MEDICARE (WNR) MEDICARE (M) PART B Jul 22, 2001 PART B [id number] KRISTOPHER JOHNSON PATIENT Selected Encounter This section includes the information on record at MD for the Encounter. Date/Time Encounter Type Encounter Description Reason Provider Source Nov 01, 2024 12:30 PM EAR MOLD/INSERT AUDIOLOGY ICD-10-CM H90.3 Sensorineural hearing loss, bilateral [facility] Encounter Template Text not used by MD Assessments - Encounter Diagnoses This section includes the primary and secondary diagnoses documented for the Encounter. Date/Time Primary/Secondary Diagnosis Diagnosis Name Provider Source Nov 01, 2024 01:20 PM PRIMARY Sensorineural hearing loss, bilateral KENNEDY CASANOVA [facility] Nov 01, 2024 01:20 PM SECONDARY Encounter for fitting and adjustment of hearing aid KENNEDY CASANOVA [facility] Plan of Treatment: Future Appointments (+ 6 months) and Future Tests (+/- 45 days) The Plan of Treatment section includes future care activities for the patient from all MD treatmentfacilities. This section includes future appointments and future orders which are active, pending or scheduled. Future Appointments This section includes appointments that were scheduled to occur 6 months from the date of the Encounter, up to a maximum of 20 appointments. The data comes from all MD treatment facilities. Appointment Date/Time Appointment Type Appointme nt Facility Name Feb 05, 2025 10:00 AM AMBULATORY - SURGERY [facility] Encounter Notes: All associated encounter notes This section contains the clinical notes associated to the Encounter. Date/Time Encounter Note(s) Provider Source Nov 01, 2024 11:55 AM AUDIOLOGY E & M NO TE: [facility] TITLE: AUDIO EVALS STL STANDARD TITLE: AUDIOLOGY E & M NOTE DATE OF NOTE: NOV 01, 2024@11:55 ENTRY DATE: NOV 01, 2024@11:55:16 AUTHOR: ANNELISE CASANOVA COSIGNER: URGENCY: STATUS: COMPLETED SUBJECT: Hearing AUDIO EVALS STL Has ADDENDA Audiogram: Purpose of appointment: audio [x] initiated visit accompanied by , Richie. Case history: Otoscopic evaluation: normal AU. 's main complaint is bilateral hearing loss. [place] reports constant, long-standing tinnitus, bilaterally that he described as non-bothersome in nature; described it as 'sizzling'. 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 [place] denied any ear pain, pressure, dizziness/vertigo, history of otosurgery, history of TM perforation, and any recent ear infections. has 12/21/18 Tungle.meEO [id number] CAMERON devices. -Hearing aids are over 5 years old, which meets [facility] criteria for eligibility every 4-5 years. -[place] has an iPhone. Last evaluation on 02/28/2023 RESULTS: RIGHT EAR Audiometry (air and/or bone conduction): Hearing thresholds WNL at 0.25kHz & 0.5kHz, sloping to severe from 4kHz through 8kHz; most significant change at 1kHz. Changes since last test: Slight deterioration of 10 dB HL at 1kHz. SRT: 45 dB HL. WRS: Good. 72% at 85 dB HL with 55 dB HL of contralateral masking noise. 88% at 95 dB HL with 65 dB HL of contralateral masking noise. [80% at last eval.] Tympanogram: type A Acoustic Reflexes: Ipsilateral: Present at 0.5kHz, 1kHz, & 2kHz; Absent at 4kHz. Contralateral: Present at 0.5kHz; Absent at 1kHz, 2kHz, & 4kHz. LEFT EAR Audiometry (air and/or bone conduction): Hearing thresholds WNL from 0.25kHz through 0.75kHz, sloping severe from 4kHz through 8kHz; stable since last test. SRT: 40 dB HL. WRS: Good. 72% at 80 dB HL with 50 dB HL of contralateral masking noise. 80% at 90 dB HL with 60 dB HL of contralateral masking noise. [96% at last eval.] Tympanogram: type A Acoustic Reflexes: Ipsilateral: Absent at 0.5kHz, 1kHz, 2kHz, & 4kHz. Contralateral: Absent at 0.5kHz, 1kHz, 2kHz, & 4kHz. is a candidate for hearing aids. Counseled [place] regarding degree of loss. Discussed full-time commitment and realistic expectations of hearing aids. HAC/HAE to follow. HAE: Hearing Aid Exam performed today: [x] Binaural Otoscopy reveals clear canals. Appropriate evaluation of leads to hearing aid order. Ear mold impressions taken, all margins of otoblocks visualized with no gaps prior to impressions taken without incident. Hearing aids will be ordered and appointment requested for fitting. [x] Provider initiated visit [x] Experienced user: Yoon has 12/21/18 SONOVA PHONAK AUDEO [id number] CAMERON devices. Discussed aids with [place] to include the following: STYLE: Showed various demo aids in clinic from canal through CAMERON style; prefers RICs. BATTERY TYPE: Discussed rechargeable vs disposable batteries; [place] prefers rechargeable. COLOR: Graphite. CONNECTIVITY: has an iPhone device and is interested in Bluetooth Connectivity. MATRIX: 2P chosen based on audiometric threshold. After discussion, and clinician chose: PHONAK AUDEO I90-R CAMERON in graphite with 2P canal lock c-shells. 12/21/18 PHONAK AUDEO [id number] CAMERON R [id number] (CD) 12/21/18 PHONAK AUDEO [id number] CAMERON L [id number] [facility] (CD) [2xP wire bender hand, canal slim tips] [place]'s hearing aids were cleaned and checked; wax guards replaced & microphone ports brushed; listening check revealed WNL device function. Devices connected to CHRISTIE and data logging revealed approximately 11.6 hours of daily use. Programming adjustments made: o Coupling verified in fitting software. o Reprogrammed to most recent audiometric data. o Feedback senior care manager run. o Frequency lowering disabled. is satisfied with sound quality and level of devices; no additional adjustments made. Slim tips missing wax grommet and pull strings; ordering new slim tips to dispense at [facility]: 11/01/24 [id number] SERV REQ - EARMOLD CERT. PENDING PHONAK AUDEO B90-DIR 11/01/24 [id number] SERV REQ - EARMOLD CERT. PENDING PHONAK AUDEO B90-DIR RECOMMENDATIONS: 1. [facility] sched. Program as [automatic - VC - Prev. user - iPhone] 2. When new slim tips arrive, please place in hearing aid kit. /tomasa/ LEON PENDLETON [facility] Staff Slasher Tender, LYNN, [facility] Signed: 11/01/2024 13:43 11/22/2024 ADDENDUM STATUS: COMPLETED Hearing aids certified in [facility] & prepped for [facility]. certified RT & LT new slim tip molds; holding in hearing aid kit until [facility]: 11/01/24 [id number] SERV REQ - EARMOLD CJR COMPLETE PHONAK AUDEO B90-DIR 11/01/24 [id number] SERV REQ - EARMOLD CJR COMPLETE PHONAK AUDEO B90-DIR /es/ LEON SUAZO Staff Slasher TenderLYNN, CCC-A Signed: 11/22/2024 15:25 12/07/2024 ADDENDUM STATUS: COMPLETED CONTACT WAS ATTEMPTED BUT UNSUCCESSFUL. WAS LEFT INSTRUCTING TO RETURN CALL TO CLINIC FOR SCHEDULING. /tomasa/ JACKIE PRYOR Advanced Firepot Operator And Tender Signed: 12/07/2024 10:12 LEON CASANOVA [facility]
== END 2024-12-12 14:36 | disposition home or self-care (01) ==
PROVIDERS: PCP Family Medicine; Visit Provider Physician Assistant
DX: I65.01 Occlusion and stenosis of right vertebral artery (principal); R90.89 Other abnormal findings on diagnostic imaging of central nervous system; Z86.73 Personal history of transient ischemic attack (TIA), and cerebral infarction without residual deficits
CPT/HCPCS: 93880

== ENCOUNTER 2025-05-13 10:10 | Outpatient (CLI) | payer MEDICARE, SELFPAY ==
[2025-05-13 10:35] LABS: Hematocrit 41.8 % (42.0-52.0); Hemoglobin 14.5 g/dL (14.0-18.0); Mean Corpuscular HGB Conc 34.7 g/dl (32-36); Mean Corpuscular Hemoglobin 34.1 pg (26-34); Mean Corpuscular Volume 98.4 fl (80-100); Mean Platelet Volume 10.2 fl (7.4-10.4); Platelet Count Result 154 k/mm3 (150-375); Red Blood Count 4.25 M/mm3 (4.6-6.20); Red Cell Distribution Width 12.3 % (11.5-14.5); White Blood Count 4.2 K/mm3 (4.5-10.0)
[2025-05-13 11:44] LABS: Iron 108 ug/dL (49-181)
[2025-05-13 11:54] LABS: Percent Iron Saturation 37 % (20-50)
== END 2025-05-13 10:11 | disposition home or self-care (01) ==
PROVIDERS: PCP Family Medicine; Visit Provider Internal Medicine Hematology & Oncology
DX: D64.9 Anemia, unspecified (principal)
CPT/HCPCS: 36415; 82728; 83540; 83550; 85027

== ENCOUNTER 2025-10-15 08:48 | Outpatient (CLI) | payer MEDICARE, SELFPAY ==
--- OUTSIDE RECORDS SUMMARY | 2025-10-15 08:32 | XMS_ITS | Clinical Summary ---
Author Organization [facility] Address [address] [place] [address] Care Team Providers Care Health Analyst Name Role Phone Kristopher Wooten MD Primary Care Provider [phone] Source Comments [facility],non-owned Affiliates and Associated Physician Practices is amultiple site organization consisting of ambulatory clinics and hospital sitesin [place], [place], [place] and [place]. This disclosure is being madepursuant to the Care Everywhere program and may not contain all information available regarding this patient. 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 Gender Identity Not on file Sexual Orientation Not on file Plan of Treatment Health Maintenance Due Date Last Done Comments DTAP/TDAP/TD VACCINES (1 - Tdap) 1955 PNEUMOCOCCAL VACCINE 50+ (1 of 1 - PCV) 1986 ZOSTER VACCINE (1 of 2) 1986 Respiratory Syncytial Virus (RSV) Vaccine Pt: or over 60 yrs (1 - 1-dose 75+ series) 2011 DEPRESSION SCREENING 11/21/2024 MEDICARE AWV CALENDAR YEAR 2024 COVID-19 VACCINE ( - 2024-2 6 season) 2025 INFLUENZA VACCINE (#1) 2025 HEPATITIS B VACCINE Aged Out No longe r eligible based on patient's age to complete this topic HIB VACCINE Aged Out No longer eligi ble based on patient's age to complete this topic HPV VACCINE Aged Out No longer eligi ble based on patient's age to complete this topic MENINGOCOCCAL (Group B) VACC INE SHARED DECISION-MAKING Aged Out No longer eligibl e based on patient's age to complete this topic MENINGOCOCCAL GROUPS A/C/Y/W VACCINE Aged Out No longer eligible b ased on patient's age to complete this topic Insurance MEDICARE MEDICARE AETNA MEDICARE [facility] Care Teams Health Analyst Relationship Specialty Start Date End Date Kristopher Wooten MD [address] [facility] [address] [place] [id number] PCP - General 09/11/09
--- OUTSIDE RECORDS SUMMARY | 2025-10-15 08:32 | XMS_ITS | Clinical Summary ---
Author Organization [facility] Address [facility] [place] [address] Care Team Providers Care Government Relations Director Name Role Phone Darrin Lowery MD Primary Care Provider [phone] Social History Tobacco Use Types Packs/Day Years Used Date Smoking Tobacco: Never Assessed Sex and Gender Information Value Date Recorded Sex Assigned at Not on file Legal Sex Male 12:03 PM CDT Gender Identity Not on file Sexual Orientation Not on file Last Filed Vital Signs Vital Sign Reading Time Taken Comments Blood Pressure 108/66 08/26/2016 3:07 PM CDT Pulse 63 09/07/2016 12:09 PM CDT Temperature - - Respiratory Rate - - Oxygen Saturation - - Inhaled Oxygen Concentration - - Weight 83.5 kg (184 lb) 09/07/2016 12:09 PM CDT Height 162.6 cm (5' 4) 09/07/2016 12:09 PM CDT Body Mass Index 31.58 09/07/2016 12:09 PM CDT Plan of Treatment Health Maintenance Due Date Last Done Comments Annual Medicare Wellness Visit 2001 RSV Immunization or 60+ Years (1 - 1-dose 75+ series) 2011 COVID-19 Vaccine (3 - 2024-2 6 season) 2025 12/25/2020, 12/04/2020 Influenza Adult (#1) 2025 DTaP, Tdap and Td Vaccines ( 2 - Td or Tdap) 07/19/2029 07/19/2019, 03/21/2007 Pneumococcal Vaccine: 50+ Years Completed 09/29/2015, 12/22/2007 Zoster Vaccines Completed 06/21/2018, 01/19/2018, 12/22/2007 Hepatitis A Vaccines Aged Out No long er eligible based on patient's age to complete this topic Meningococcal B Vaccine Aged Out No l onger eligible based on patient's age to complete this topic Meningococcal Vaccine Aged Out No chica henrietta eligible based on patient's age to complete this topic RSV Immunizations Under 20 Months Aged Out No longer eligible b ased on patient's age to complete this topic Insurance AETNA MEDICARE AET Care Teams Government Relations Director Relationship Specialty Start Date End Date Darrin Lowery MD [address] [place] [address] PCP - General FAMILY PRACTICE 10/15/24
--- OUTSIDE RECORDS SUMMARY | 2025-10-15 08:32 | XMS_ITS | Encounter Summary ---
Author Organization [facility] Healthcare Address [address] [place] [address] Care Team Providers Care Legal Job Titles Name Role Phone Darrin Lowery MD Primary Care Provider Encounter Details Date Type Department Care Team (Late st Contact Info) Description 10/31/2024 Orders Only [facility] Health Information Management [address] [place] [id number] Scanning, Provider Social History Tobacco Use Types Packs/Day Years Used Date Smoking Tobacco: Never Smokeless Tobacco: Never Alcohol Use Standard Drinks/Week Comments No 0 (1 standard drink = 0.6 oz pur e alcohol) Sex and Gender Information Value Date Recorded Sex Assigned at Not on file Legal Sex Male 12:50 AM HEEL SEAT POUNDER Gender Identity Not on file Sexual Orientation Not on file documented as of this encounter Plan of Treatment Not on file documented as of this encounter Procedures Procedure Name Priority Date/Time Associated Diagnosis Comments SCAN - LABS 10/31/2024 documented in this encounter Results * SCAN - LABS (10/31/2024) us Provider Scanning Final Result documented in this encounter Visit Diagnoses Not on filedocumented in this encounter Care Teams Legal Job Titles Relationship Specialty Start Date End Date Darrin Lowery MD [address] [facility] [address] [place], [place] [id number] PCP - General Family Medicine 11/16/17 documented as of this encounter
--- OUTSIDE RECORDS SUMMARY | 2025-10-15 08:32 | XMS_ITS | Clinical Summary ---
Author Organization [facility] Raquel nayak Anaoanhmontez Address [address] [place] [address] Care Team Providers Care Pulpwood Dealer Name Role Phone Darrin Lowery MD Primary Care Provider Allergies No known active allergies Medications alendronate (FOSAMAX) 70 mg tablet 3 Active ascorbic acid (VITAMIN C) 500 mg Tablet, Chewable Take by mouth daily. Active calcium citrate 250 mg calcium Tablet Take by mouth daily. Active cyanocobalamin (VITAMIN B-12) 50 mcg Tablet Take 50 mcg by mouth daily. Active DOCOSAHEXAENOIC ACID ORAL Take 1 Capsule by mouth daily. Active omeprazole (PriLOSEC) 40 mg Capsule, Delayed Release(E.C.) Take 40 mg by mouth daily. 4 Active zinc gluconate 50 mg Tablet Take 50 mg by mouth daily. Active acidophilus-pec tin, citrus 100 million cell-10 mg Capsule Take by mouth daily. Active clonazePAM (KlonoPIN) 1 mg tablet Take 1.5 mg by mouth daily. Active magnesium oxide 250 mg magnesium Tablet 250 mg daily. Active latanoprost (XALATAN) 0.005 % solution 1 Drop by Ophthalmic route daily at bedtime. Active ferrous sulfate 325 mg (65 mg iron) tablet Take 325 mg by mouth daily. Active Active Problems No known active problems Encounters Date Type Department Care Team Description 09/18/2025 External Device Data STL ABSTRACTION Provider, Abstract 09/18/2025 External Device Data STL ABSTRACTION Provider, Abstract 09/11/2025 External Device Data STL ABSTRACTION Provider, Abstract 09/10/2025 External Device Data STL ABSTRACTION Provider, Abstract 08/06/2025 External Device Data STL ABSTRACTION Provider, Abstract 08/06/2025 External Device Data STL ABSTRACTION Provider, Abstract from Last 3 Months Family History Medical History Relation Name Comments Multiple myeloma Brother No Known Problems Child 1 No Known Problems Child 2 No Known Problems Child 3 Kidney Cancer Father No Known Problems Mother Heart Disease Sister 1 Brain Cancer Sister 2 Relation Name Status Comments Brother Alive Child 1 Alive Child 2 Alive Child 3 Alive Father Mother Sister 1 Alive Sister 2 Alive Social History Tobacco Use Types Packs/Day Years Used Date Smoking Tobacco: Never Smokeless Tobacco: Never Tobacco Cessation:Counseling Given: Not Answered Alcohol Use Standard Drinks/Week Comments Never 0 (1 standard drink = 0.6 oz pur e alcohol) Sex and Gender Information Value Date Recorded Sex Assigned at Not on file Legal Sex Male 11:12 AM CDT Gender Identity Not on file Sexual Orientation Not on file Last Filed Vital Signs Vital Sign Reading Time Taken Comments Blood Pressure 117/65 05/21/2025 2:13 PM CDT Pulse 63 05/21/2025 2:13 PM CDT Temperature 36.8 C (98.3 F) 05/21/2025 2:13 PM CDT Respiratory Rate 15 05/21/2025 2:13 PM CDT Oxygen Saturation 95% 05/21/2025 2:13 PM CDT Inhaled Oxygen Concentration - - Weight 84 kg (185 lb 3.2 oz) 05/21/2025 2:13 PM CDT Height 185.4 cm (6' 1) 08/29/2024 1:38 PM CDT Body Mass Index 24.43 08/29/2024 1:38 PM CDT Plan of Treatment Upcoming Encounters Date Type Department Care Team (Late st Contact Info) Description 10/23/2025 2:15 PM NURSING PROJECT COORDINATOR Office Visit [facility] Oncology and Hematology - [address] [facility] [address] [place] [address] Triston Starr MD [address] [facility] [address] [place] [address] Health Maintenance Due Date Last Done Comments RSV VACCINE (60+ or ) (1 - 1-dose 75+ series) 2011 INFLUENZA VACCINE (#1) 2025 COVID-19 Vaccine (2024- season) 07/22/202502/2021, 12/04/2020 DTAP/TDAP/TD VACCINES (2 - Td or Tdap) 07/19/2029 PNEUMOCOCCAL VACCINE 50+ YEARS Completed 09/21/2015 , 12/22/2007 ZOSTER VACCINE Completed 06/21/2018, 01/19/2018 Insurance AETNA PPO MCR Care Teams Pulpwood Dealer Relationship Specialty Start Date End Date Darrin Lowery MD [address] [facility] [address] [place] [address] PCP - General Family Practice 09/06/24
--- OUTSIDE RECORDS SUMMARY | 2025-10-15 08:32 | XMS_ITS | Encounter Summary ---
Author Organization [facility] Address [address] [place] [address] Care Team Providers Care Bulb Filler Name Role Phone Kristopher Wooten MD Primary Care Provider [phone] Encounter Details Date Type Department Care Team (Late st Contact Info) Description 10/04/2018 Lab Requisition [facility] DermPath Lab [address] [place] [address] Donte Rowland MD [address] [place] [address] Social History Tobacco Use Types Packs/Day Years Used Date Smoking Tobacco: Never Assessed Sex and Gender Information Value Date Recorded Sex Assigned at Not on file Legal Sex Male 5:49 PM LEAD OPERATOR Gender Identity Not on file Sexual Orientation Not on file documented as of this encounter Plan of Treatment Not on file documented as of this encounter Procedures Procedure Name Priority Date/Time Associated Diagnosis Comments DERMATOPATHOLOGY Routine 10/03/2018 12:0 0 AM LEAD OPERATOR documented in this encounter Results * DERMATOPATHOLOGY (10/03/2018 12:00 AM LEAD OPERATOR) Case Report Dermatopathology Report Case: [id number] Authorizing Provider: Donte Rowland MD Collected: 10/03/2018 12:00 AM Pathologist: Alejandra Chase MD Received: 10/04/2018 12:30 PM Specimen: Skin, dorsal right hand 8 2:14 PM LEAD OPERATOR DERMATOPATHOLOGY LABORATORY Final Diagnosis Specimen A. 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 The specimen consists of a shave biopsy measuring [id number]. Jar 0. 2:14 PM [facility] DERMATOPATHOLOGY LABORATORY Microscopic Description Specimen A. SKIN, dorsal right hand: Sections reveal parakeratosis, acanthosis and keratinocyte dysmaturation which is most prominent in the lower epidermis. Focal nests are present in the dermis. 2:14 PM [facility] DERMATOPATHOLOGY LABORATORY Disclaimer An external and internal positive and negative controls are appropriate for the histochemical, immunohistochemical and immunofluorescence stain(s) in this case (if any), except where stated explicitly. The performance characteristics of the stain(s) cited in this report were developed and its performance characteristic determined by the Dermatopathology Laboratory at [facility]. These tests need not be, and therefore are not, approved by the [place] Food and Drug Administration. The tests are used for clinical purposes. Billing Codes Specimen Charges Stain Charges 57516 1 8 2:14 PM LEAD OPERATOR DERMATOPATHOLOGY LABORATORY Embedded Images 2:14 PM LEAD OPERATOR DERMATOPATHOLOGY LABORATORY Pathology/Cytolog y TISSUE SPECIMEN FROM SKIN / Unknown 10/03/2018 10/04/2018 12:30 PM LEAD OPERATOR Donte Rowland MD LAB - PATHOLOGY/CYTOLOGY ORD ERABLES Final Result DERMATOPATHOLOGY LABORATORY [facility] - Department of Dermatology [address] [place] [address], 5[address] [place] [address], [facility] [phone] documented in this encounter Visit Diagnoses Not on filedocumented in this encounter Care Teams Bulb Filler Relationship Specialty Start Date End Date Kristopher Wooten MD [address] [facility] [address] [place] [phone] PCP - General 09/11/09 documented as of this encounter
--- OUTSIDE RECORDS SUMMARY | 2025-10-15 08:32 | XMS_ITS | Encounter Summary ---
Author Organization [facility] Address [address] [facility] [place] [address] Care Team Providers Care Senior Advisory Name Role Phone Kristopher Wooten MD Primary Care Provider [phone] Encounter Details Date Type Department Care Team (Late st Contact Info) Description 10/26/2018 Lab Requisition [facility] DermPath Lab [address] [place] [address] Donte Rowland MD [address] [place] [address] Social History Tobacco Use Types Packs/Day Years Used Date Smoking Tobacco: Never Assessed Sex and Gender Information Value Date Recorded Sex Assigned at Not on file Legal Sex Male 5:49 PM WAITER/WAITRESS BAR Gender Identity Not on file Sexual Orientation Not on file documented as of this encounter Plan of Treatment Not on file documented as of this encounter Procedures Procedure Name Priority Date/Time Associated Diagnosis Comments DERMATOPATHOLOGY Routine 10/25/2018 12:0 0 AM WAITER/WAITRESS BAR documented in this encounter Results * DERMATOPATHOLOGY (10/25/2018 12:00 AM WAITER/WAITRESS BAR) Case Report Dermatopathology Report Case: [id number] Authorizing Provider: Donte Rowland MD Collected: 10/25/2018 12:00 AM Pathologist: Joyce Simon MD Received: 10/26/2018 12:48 PM Specimen: Skin, dorsal right hand 8 5:13 PM WAITER/WAITRESS BAR DERMATOPATHOLOGY LABORATORY Final Diagnosis Specimen A. 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 Previous Bx: [id number]. 8 5:13 PM [facility] DERMATOPATHOLOGY LABORATORY Gross Description Specimen A: Received is one formalin filled container labeled with the patient's name and designated dorsal right hand. The specimen consists of a curettage and desiccation biopsy measuring [id number]. Jar 0. 8 5:13 PM [facility] DERMATOPATHOLOGY LABORATORY Microscopic Description Specimen A. SKIN, dorsal right hand: There is focal parakeratosis. The lower half of the epidermis shows disorderly maturation of keratinocytes with nuclear pleomorphism. This lesion is not present at the margin of the specimen. There are fibroblasts and collagen bundles oriented parallel to the skin surface. There are elongated blood vessels, some of which are oriented perpendicular to the skin surface. No residual squamous cell carcinoma is identified. The dermal scar is present at the base of the specimen. 8 5:13 PM [facility] DERMATOPATHOLOGY LABORATORY Disclaimer An external and internal positive and negative controls are appropriate for the histochemical, immunohistochemical and immunofluorescence stain(s) in this case (if any), except where stated explicitly. The performance characteristics of the stain(s) cited in this report were developed and its performance characteristic determined by the Dermatopathology Laboratory at [facility]. These tests need not be, and therefore are not, approved by the [place] Food and Drug Administration. The tests are used for clinical purposes. Billing Codes Specimen Charges Stain Charges 28590 1 8 5:13 PM [facility] DERMATOPATHOLOGY LABORATORY Embedded Images 8 5:13 PM [facility] DERMATOPATHOLOGY LABORATORY Pathology/Cytolog y TISSUE SPECIMEN FROM SKIN / Unknown 10/25/2018 10/26/2018 12:48 PM [facility] Donte Rowland MD LAB - PATHOLOGY/CYTOLOGY ORD ERABLES Final Result DERMATOPATHOLOGY LABORATORY [facility] - Department of Dermatology [address] [place] [address], 5th [place] [address], [facility] [phone] documented in this encounter Visit Diagnoses Not on filedocumented in this encounter Care Teams Senior Advisory Relationship Specialty Start Date End Date Kristopher Wooten MD [address] [facility] [address] [facility] [address] [place] [phone] PCP - General 09/11/09 documented as of this encounter
--- OUTSIDE RECORDS SUMMARY | 2025-10-15 08:32 | XMS_ITS | Clinical Summary ---
Author Organization [facility] [address] Address [address] [place] [address] Care Team Providers Care Rope Coiling Machine Operator Name Role Phone Darrin Lowery MD Primary Care Provider Allergies No known active allergies Medications txnvy-4-wlf-epa -dpa-fish oil 1,050-1,200 mg capsule Take 1 capsule by mouth daily Active calcium citrate 250 mg calcium tablet Take by mouth daily. Active cholecalciferol (VITAMIN D-3) 1,000 unit Take 1 tablet/capsule (1,000 Units total) by mouth daily Active ascorbic acid (VITAMIN C) 500 mg tablet,chewable Take by mouth daily. Active acidophilus-pec tin, citrus 100 million cell-10 mg capsule Take by mouth daily. Active clonazePAM (KlonoPIN) 1 mg tablet Take 1 tablet (1 mg total) by mouth daily Active aspirin 81 mg tablet Take 1 tablet (81 mg total) by mouth daily Active latanoprost (XALATAN) 0.005 % ophthalmic solution Administer 1 drop into both eyes nightly Active cyanocobalamin (Vitamin B-12) 50 mcg tabletIndicatio ns:Prevention of Vitamin B12 Deficiency Take 1 tablet (50 mcg total) by mouth daily Active C,E,zinc,copper 79-nzlfg8h-kdn 250-5-1 mg capsule Take 1 capsule by mouth daily Active magnesium oxide (MAG-OX) 250 mg (150.8 mg elemental) tabletIndicatio ns:hypomagnesem ia 1 tablet (250 mg total) daily Active zinc gluconate 50 mg tablet Take 1 tablet (50 mg total) by mouth daily Active alendronate (FOSAMAX) 70 mg tablet 3 Active omeprazole (PriLOSEC) 40 mg capsule Take 1 capsule (40 mg total) by mouth daily 4 Active atorvastatin (LIPITOR) 10 mg tabletIndicatio ns:Subclavian artery stenosis, right,History of TIA (transient ischemic attack) Take 1 tablet (10 mg total) by mouth daily 90 tablet 3 5 03/18/20 26 Active Active Problems Problem Noted Date Diagnosed Date Mixed hyperlipidemia 07/09/2025 Assessment & Plan (07/09/2025 12:38 PM CDT): Stable continue Lipitor Abnormal echocardiogram 03/18/2025 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 On his noninvasives testing his wrist brachial indices are normal and has a palpable radial pulse. I think his dizziness episode was likely more inner ear pathology. Does not need any further workup or testing from my standpoint. Can follow up me as needed. 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 He does report chronic headaches and dizziness. Patient denies any right upper extremity claudication or symptoms suggestive of TIA/stroke. Patient has palpable radial and brachial pulses bilaterally. There are no BP discrepancies seen between bilateral upper extremities. Plan: Educated patient, his , and his son about subclavian steal as there was some confusion as he thought there was an issue with the vertebral artery. Patient voices understanding after education about subclavian stenosis. Bilateral lower extremity edema 04/30/2024 Hypotension 06/06/2020 Bradycardia 12/16/2017 History of TIA (transient ischemic attack) 12/16 Temporary cerebral vascular dysfunction 04/06/20 14 Overview (02/23/2017): TIA (transient ischemic attack) MARCO (obstructive sleep apnea) 04/06/2014 Overview (02/23/2017): MARCO (obstructive sleep apnea) Dysphonia 11/30/2011 Encounters Date Type Department Care Team Description 09/24/2025 10:15 AM CRACKING UNIT OPERATOR Office Visit [facility] Cardiology at [address] [place] [address] Humberto Santiago MD History of TIA (transient ischemic attack) (Primary Dx); Mixed hyperlipidemia; Bradycardia; MARCO (obstructive sleep apnea); Subclavian artery stenosis, right; Bilateral lower extremity edema from Last 3 Months Surgical History Surgery Date Site/Laterality Comments HERNIA REPAIR 11/21/2009 - 11/20/2010 Hernia repair TONSILLECTOMY/ADENOIDECTOMY 11/21/1940 - 11/20/1941 UMBILICAL HERNIA REPAIR 11/21/2008 - 11/20/2009 VENTRAL HERNIA REPAIR 11/21/2009 - 11/20/2010 INGUINAL HERNIA REPAIR 11/21/2011 - 11/20/2012 Bilateral TURP / TRANSURETHRAL INCISIO N / DRAINAGE PROSTATE 11/21/2015 - 11/20/2016 Medical History Medical History Date Comments Hx Other Medical 2009 Hernia Surgery Hx Other Medical Prostate Proble ms Fracture of lower extremity Frac ture, lower limb Hx Other Medical Fracture, upper limb Fracture of tibial spine Fractur e, spine Kidney disorder Renal disease Colon polyps 2011 Sleep apnea Family History Medical History Relation Name Comments Heart attack Brother Nam Heart disease Brother Nam Multiple myeloma Brother Nam Kidney cancer Father Stomach cancer Maternal Grandmother Alzheimer's disease Mother Stomach cancer Paternal Grandfather Heart attack Sister 1 Lois Lackey Kidney disease Sister 1 Lois Lackey Osteoporosis Sister 1 Lois Lackey Brain cancer Sister 2 Gloria Relation Name Status Comments Brother Nam (Age 87) Father (Age 71) Maternal Grandmother (Age 69) Mother (Age 87) Paternal Grandfather (Age 67) Sister 1 Lois Lackey (Age 91) Sister 2 Gloria (Age 70) Social History Tobacco Use Types Packs/Day Years Used Date Smoking Tobacco: Never Smokeless Tobacco: Never Alcohol Use Standard Drinks/Week Comments No 0 (1 standard drink = 0.6 oz pur e alcohol) Sex and Gender Information Value Date Recorded Sex Assigned at Not on file Legal Sex Male 12:50 AM CRACKING UNIT OPERATOR Gender Identity Not on file Sexual Orientation Not on file Last Filed Vital Signs Vital Sign Reading Time Taken Comments Blood Pressure 98/58 09/24/2025 10:09 AM CRACKING UNIT OPERATOR Pulse 49 09/24/2025 10:09 AM CRACKING UNIT OPERATOR Temperature - - Respiratory Rate - - Oxygen Saturation 98% 09/24/2025 10:09 AM CRACKING UNIT OPERATOR Inhaled Oxygen Concentration - - Weight 83 kg (183 lb) 09/24/2025 10:09 AM CRACKING UNIT OPERATOR Height 182.9 cm (6') 09/24/2025 10:09 AM CRACKING UNIT OPERATOR Body Mass Index 24.82 09/24/2025 10:09 AM CRACKING UNIT OPERATOR Plan of Treatment Health Maintenance Due Date Last Done Comments Depression Screening 1936 Fall Risk Assessment 1936 Hepatitis B Screening 1954 Well Visit 65+ 2001 Covid-19 Vaccine (2024-2 6 season) 2025 08/25/2022, 08/25/2022, 09/10/2021, Additional history exists DTaP/Tdap/Td Vaccine (3 - Td or Tdap) 07/19/2029 07/19/2019, 09/16/2015 Pneumococcal vaccine 65+ Completed 015, 09/21/2015, 12/22/2007 Zoster Vaccine Completed 06/29/2018, 02/21, 03/17/2018, Additional history exists Influenza Vaccine Completed 09/16/2025, , 08/25/2022, Additional history exists Insurance AETNA MEDICARE Care Teams Rope Coiling Machine Operator Relationship Specialty Start Date End Date Darrin Lowery MD [address] [place] [address] PCP - General Family Medicine 11/16/17
--- OUTSIDE RECORDS SUMMARY | 2025-10-15 08:32 | XMS_ITS | Clinical Summary ---
Author Organization [facility] Care Team Providers Care Animal Laboratory Technician Name Role Phone Unavailable Primary Care Provider Unavailabl e Medications omeprazole (PRILOSEC) 40 MG CAPSULE DELAYED RELEASE Take 40 mg by mouth daily. Active Social History Tobacco Use Types Packs/Day Years Used Date Smoking Tobacco: Never Assessed Sex and Gender Information Value Date Recorded Sex Assigned at Not on file Legal Sex Male 7:23 PM CDT Gender Identity Not on file Sexual Orientation Not on file Plan of Treatment Health Maintenance Due Date Last Done Comments Hepatitis C Virus (HCV) Screening 1935 TdaP Immunization 1936 Pneumococcal Immunization (5 0+ years) (1 of 1 - PCV) 1986 Zoster Immunization (1 of 2) 1986 Respiratory Syncytial Virus (RSV) Immunization (Adult) (1 - 1-dose 75+ series) 2011 Influenza Immunization (#1) 2025 SARS-COV-2 Immunization ( - season) 2025 Hepatitis B Immunization Aged Out No longer eligible based on patient's age to complete this topic Human Papillomavirus (HPV) Immunization Aged Out No longer eligible b ased on patient's age to complete this topic Meningococcal Immunization (ACWY) Aged Out No longer eligible based on patient's age to complete this topic Rotavirus Immunization Aged Out No lo nger eligible based on patient's age to complete this topic
--- OUTSIDE RECORDS SUMMARY | 2025-10-15 08:32 | XMS_ITS | Encounter Summary ---
Author Organization [facility] Healthcare Address [address] [place] [address] Care Team Providers Care Inside Sales Administrator Name Role Phone Darrin Lowery MD Primary Care Provider Encounter Details Date Type Department Care Team (Late st Contact Info) Description 12/12/2024 Orders Only [facility] Health Information Management [address] [place] [address] Scanning, Provider Social History Tobacco Use Types Packs/Day Years Used Date Smoking Tobacco: Never Smokeless Tobacco: Never Alcohol Use Standard Drinks/Week Comments No 0 (1 standard drink = 0.6 oz pur e alcohol) Sex and Gender Information Value Date Recorded Sex Assigned at Not on file Legal Sex Male 12:50 AM LANGUAGE THERAPIST Gender Identity Not on file Sexual Orientation Not on file documented as of this encounter Plan of Treatment Not on file documented as of this encounter Procedures Procedure Name Priority Date/Time Associated Diagnosis Comments SCAN - RADIOLOGY/IMAGING 12/12/2024 documented in this encounter Results * SCAN - RADIOLOGY/IMAGING (12/12/2024) Anatomical Region Laterality Modality Other us Provider Scanning Final Result documented in this encounter Visit Diagnoses Not on filedocumented in this encounter Care Teams Inside Sales Administrator Relationship Specialty Start Date End Date Darrin Lowery MD [address] [place] [address] PCP - General Family Medicine 11/16/17 documented as of this encounter
--- OUTSIDE RECORDS SUMMARY | 2025-10-15 09:07 | XMS_ITS | Clinical Summary ---
Author Organization [facility] Address [address] [facility] [place] [address] Care Team Providers Care Window Systems Administrator Name Role Phone Kristopher Wooten MD Primary Care Provider [phone] Source Comments [facility],non-owned Affiliates and Associated Physician Practices is amultiple site organization consisting of ambulatory clinics and hospital sitesin [place], [place], [place] and [place]. This disclosure is being madepursuant to the Care Everywhere program and may not contain all information available regarding this patient. 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
--- OUTSIDE RECORDS SUMMARY | 2025-10-15 09:07 | XMS_ITS | Encounter Summary ---
Author Organization [facility] Healthcare Address [address] [place] [address] Care Team Providers Care Stitch Separator Name Role Phone Darrin Lowery MD Primary Care Provider Encounter Details Date Type Department Care Team (Late st Contact Info) Description 12/12/[address] 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
--- OUTSIDE RECORDS SUMMARY | 2025-10-15 09:07 | XMS_ITS | Clinical Summary ---
Author Organization [facility] [address] Address [address] [place] [address] Care Team Providers Care Purchase Order Checker Name Role Phone Darrin Lowery MD Primary Care Provider Allergies No known active allergies Medications bycne-5-eoj-epa -dpa-fish oil 1,050-1,200 mg capsule Take 1 [...] mcg total) by mouth daily Active C,E,zinc,copper 66-[id number]-zbk 250-5-1 mg capsule Take 1 capsule by [...] needed. Assessment & Plan (12/27/2024 4:04 PM YARN INSPECTOR): Impression: Patient underwent a carotid duplex at [...] Department Care Team Description 09/24/2025 10:15 AM YARN INSPECTOR Office Visit [facility] Medical [facility] Cardiology at [address] [place] [address] Humberto Santiago MD History of [...] Heart disease Brother Nam Multiple myeloma Brother aNm Kidney cancer Father Stomach cancer Maternal Grandmother [...] on file Legal Sex Male 12:50 AM YARN INSPECTOR Gender Identity Not on file Sexual Orientation Not on file Last Filed Vital Signs Vital Sign Reading Time Taken Comments Blood Pressure 98/58 09/24/2025 10:09 AM YARN INSPECTOR Pulse 49 09/24/2025 10:09 AM YARN INSPECTOR Temperature - - Respiratory Rate - - Oxygen Saturation 98% 09/24/2025 10:09 AM YARN INSPECTOR Inhaled Oxygen Concentration - - Weight 83 kg (183 lb) 09/24/2025 10:09 AM YARN INSPECTOR Height 182.9 cm (6') 09/24/2025 10:09 AM YARN INSPECTOR Body Mass Index 24.82 09/24/2025 10:09 AM YARN INSPECTOR Plan of Treatment Health Maintenance Due Date [...] history exists Insurance AETNA MEDICARE Care Teams Purchase Order Checker Relationship Specialty Start Date End Date Darrin Lowery MD [address] [place] [address] PCP - General Family Medicine 11/16/17
--- OUTSIDE RECORDS SUMMARY | 2025-10-15 09:07 | XMS_ITS | Clinical Summary ---
Author Organization [facility] Care Team Providers Care Bale Opener Name Role Phone Unavailable Primary Care Provider [...]
--- OUTSIDE RECORDS SUMMARY | 2025-10-15 09:07 | XMS_ITS | Encounter Summary ---
Author Organization [facility] Healthcare Address [address] [place] [address] Care Team Providers Care Geological Aide Name Role Phone Darrin Lowery MD Primary Care Provider Encounter Details Date Type Department Care Team (Late st Contact Info) Description 10/31/2024 Orders Only [facility] [place] [address] [place] [address] Scanning, Provider Social History Tobacco Use Types Packs/Day Years Used Date Smoking Tobacco: Never Smokeless Tobacco: Never Alcohol Use Standard Drinks/Week Comments No 0 (1 standard drink = 0.6 oz pur e alcohol) Sex and Gender Information Value Date Recorded Sex Assigned at Not on file 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 [address] [place], [place] [id number] PCP - General Family Medicine 11/16/17 documented as of this encounter
--- OUTSIDE RECORDS SUMMARY | 2025-10-15 09:07 | XMS_ITS | Clinical Summary ---
Author Organization [facility] Address [facility] [place] [address] Care Team Providers Care Road Gang Supervisor Name Role Phone Darrin Lowery MD Primary Care Provider [phone] Social History Tobacco Use Types Packs/Day Years [...] topic Insurance AETNA MEDICARE AET Care Teams Road Gang Supervisor Relationship Specialty Start Date End Date Darrin Lowery MD [address] [place] [address] PCP - General FAMILY PRACTICE 10/15/24
--- OUTSIDE RECORDS SUMMARY | 2025-10-15 09:07 | XMS_ITS | Clinical Summary ---
Author Organization [facility] Raquel nayak Anaoanhmontez Address [address] [place] [address] Care Team Providers Care Employee Benefits Administrator Name Role Phone Darrin Lowery MD [...] st Contact Info) Description 10/23/2025 2:15 PM CUTTER AND EDGE TRIMMER Office Visit [facility] Oncology and Hematology - [address] [facility] [address] [place] [address] Triston Starr MD [address] [facility] [address] [place] [address] Health Maintenance Due Date Last Done Comments RSV VACCINE (60+ or ) (1 - 1-dose 75+ series) 2011 INFLUENZA VACCINE (#1) 2025 COVID-19 Vaccine (2024- season) 07/22/202502/2021, 12/04/2020 DTAP/TDAP/TD VACCINES (2 - Td or Tdap) 07/19/2029 PNEUMOCOCCAL VACCINE 50+ YEARS Completed 09/21/2015 , 12/22/2007 ZOSTER VACCINE Completed 06/21/2018, 01/19/2018 Insurance AETNA PPO MCR Care Teams Employee Benefits Administrator Relationship Specialty Start Date End Date Darrin Lowery MD [address] [facility] [address] [place] [address] PCP - General Family Practice 09/06/24
--- OUTSIDE RECORDS SUMMARY | 2025-10-15 09:07 | XMS_ITS | Encounter Summary ---
Author Organization [facility] Address [address] [facility] [place] [address] Care Team Providers Care Outbound Telemarketing Representative Name Role Phone Kristopher Wooten MD Primary Care Provider [phone] Encounter Details Date Type Department Care Team (Late st Contact Info) Description 10/26/2018 Lab Requisition [facility] Derm[facility] Lab [address] [place] [address] Donte Rowland MD [address] [place] [address] Social History Tobacco Use Types Packs/Day Years Used Date Smoking Tobacco: Never Assessed Sex and Gender Information Value Date Recorded Sex Assigned at Not on file Legal Sex Male 5:49 PM PATIENT SERVICES REP Gender Identity Not on file Sexual Orientation Not on file documented as of this encounter Plan of Treatment Not on file documented as of this encounter Procedures Procedure Name Priority Date/Time Associated Diagnosis Comments DERMATOPATHOLOGY Routine 10/25/2018 12:0 0 AM PATIENT SERVICES REP documented in this encounter Results * DERMATOPATHOLOGY (10/25/2018 12:00 AM PATIENT SERVICES REP) Case Report Dermatopathology Report Case: [id number] Authorizing Provider: Donte Rowland MD Collected: 10/25/2018 12:00 AM Pathologist: Joyce Simon MD Received: 10/26/2018 12:48 PM Specimen: Skin, dorsal right hand 8 5:13 PM PATIENT SERVICES REP DERMATOPATHOLOGY LABORATORY Final Diagnosis Specimen A. 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 Previous Bx: [id number]. 8 5:13 PM [facility] DERMATOPATHOLOGY LABORATORY Gross Description Specimen A: Received is one formalin filled container labeled with the patient's name and designated dorsal right hand. The specimen consists of a curettage and desiccation biopsy measuring [id number]. Jar 0. 8 5:13 PM [facility] DERMATOPATHOLOGY LABORATORY Microscopic Description Specimen A. [...] base of the specimen. 8 5:13 PM [facility] DERMATOPATHOLOGY LABORATORY Disclaimer An external and internal positive and negative controls are appropriate for the histochemical, immunohistochemical and immunofluorescence stain(s) in this case (if any), except where stated explicitly. The performance characteristics of the stain(s) cited in this report were developed and its performance characteristic determined by the Dermatopathology Laboratory at [facility]. These tests need not be, and therefore are not, approved by the [place] Food and Drug Administration. The tests are used for clinical purposes. Billing Codes Specimen Charges Stain Charges 77689 1 8 5:13 PM [facility] DERMATOPATHOLOGY LABORATORY Embedded Images 8 5:13 PM [facility] DERMATOPATHOLOGY LABORATORY Pathology/Cytolog y TISSUE SPECIMEN FROM SKIN / Unknown 10/25/2018 10/26/2018 12:48 PM [facility] Donte Rowland MD LAB - PATHOLOGY/CYTOLOGY ORD ERABLES Final Result DERMATOPATHOLOGY LABORATORY [facility] - Department of Dermatology [address] [place] [address], [address] [place] [address], [facility] [phone] documented in this encounter Visit Diagnoses Not on filedocumented in this encounter Care Teams Outbound Telemarketing Representative Relationship Specialty Start Date End Date Kristopher Wooten MD [address] [facility] [address] [facility] [address] [place] [phone] PCP - General 09/11/09 documented as of this encounter
--- OUTSIDE RECORDS SUMMARY | 2025-10-15 09:07 | XMS_ITS | Encounter Summary ---
Author Organization [facility] Address [address] [place] [address] Care Team Providers Care Remelt Worker Name Role Phone Kristopher Wooten MD Primary Care Provider [phone] Encounter Details Date Type Department Care Team (Late st Contact Info) Description 10/04/2018 Lab Requisition [facility] DermPath Lab [address] [place] [address] Donte Rowland MD [address] [place] [address] Social History Tobacco Use Types Packs/Day Years Used Date Smoking Tobacco: Never Assessed Sex and Gender Information Value Date Recorded Sex Assigned at Not on file Legal Sex Male 5:49 PM TRANSPORTATION PLANNING TECHNICIAN Gender Identity Not on file Sexual Orientation Not on file documented as of this encounter Plan of Treatment Not on file documented as of this encounter Procedures Procedure Name Priority Date/Time Associated Diagnosis Comments DERMATOPATHOLOGY Routine 10/03/2018 12:0 0 AM TRANSPORTATION PLANNING TECHNICIAN documented in this encounter Results * DERMATOPATHOLOGY (10/03/2018 12:00 AM TRANSPORTATION PLANNING TECHNICIAN) Case Report Dermatopathology Report Case: [id number] Authorizing Provider: Donte Rowland MD Collected: 10/03/2018 12:00 AM Pathologist: Alejandra Chase MD Received: 10/04/2018 12:30 PM Specimen: Skin, dorsal right hand 8 2:14 PM TRANSPORTATION PLANNING TECHNICIAN DERMATOPATHOLOGY LABORATORY Final Diagnosis Specimen A. 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 The specimen consists of a shave biopsy measuring [id number] mm. Jar 0. 2:14 PM [facility] DERMATOPATHOLOGY LABORATORY Microscopic Description Specimen A. SKIN, dorsal right hand: Sections reveal parakeratosis, acanthosis and keratinocyte dysmaturation which is most prominent in the lower epidermis. Focal nests are present in the dermis. 2:14 PM [facility] DERMATOPATHOLOGY LABORATORY Disclaimer An external and internal positive and negative controls are appropriate for the histochemical, immunohistochemical and immunofluorescence stain(s) in this case (if any), except where stated explicitly. The performance characteristics of the stain(s) cited in this report were developed and its performance characteristic determined by the Dermatopathology Laboratory at [facility]. These tests need not be, and therefore are not, approved by the [place] Food and Drug Administration. The tests are used for clinical purposes. Billing Codes Specimen Charges Stain Charges 43640 1 8 2:14 PM TRANSPORTATION PLANNING TECHNICIAN DERMATOPATHOLOGY LABORATORY Embedded Images 2:14 PM TRANSPORTATION PLANNING TECHNICIAN DERMATOPATHOLOGY LABORATORY Pathology/Cytolog y TISSUE SPECIMEN FROM SKIN / Unknown 10/03/2018 10/04/2018 12:30 PM TRANSPORTATION PLANNING TECHNICIAN Donte Rowland MD LAB - PATHOLOGY/CYTOLOGY ORD ERABLES Final Result DERMATOPATHOLOGY LABORATORY [facility] - Department of Dermatology [address] [place] [address], 5th [place] [address], [facility] [phone] documented in this encounter Visit Diagnoses Not on filedocumented in this encounter Care Teams Remelt Worker Relationship Specialty Start Date End Date Kristopher Wooten MD [address] [facility] [address] [place] [address] PCP - General 09/11/09 documented as of this encounter
[2025-10-15 09:37] LABS: Hematocrit 42.2 % (42.0-52.0); Hemoglobin 14.6 g/dL (14.0-18.0); Mean Corpuscular HGB Conc 34.6 g/dl (32-36); Mean Corpuscular Hemoglobin 34.5 pg (26-34); Mean Corpuscular Volume 99.8 fl (80-100); Platelet Count Result 167 k/mm3 (150-375); Red Blood Count 4.23 M/mm3 (4.6-6.20); White Blood Count 4.7 K/mm3 (4.5-10.0)
[2025-10-15 09:58] LABS: Alanine Aminotransferase 18 U/L (6-50); Albumin Level 4.0 g/dL (3.5-5.1); Alkaline Phosphatase 74 U/L (38-126); Anion Gap 5 mmol/L (4-12); Aspartate Amino Transferase 28 U/L (17-59); Bilirubin,Total 1.0 mg/dL (0.2-1.3); Blood Urea Nitrogen 18 mg/dL (9-20); Calcium 9.7 mg/dL (8.4-10.2); Carbon Dioxide 30 mmol/L (22-30); Chloride 102 mmol/L (98-107); Cholesterol 113 mg/dL (0-200); Estimated Glomerular Filt Rate > 60; Glucose 90 mg/dL (65-110); HDL Direct 53 mg/dL; Iron 107 ug/dL (49-181); Potassium 3.8 mmol/L (3.4-5.0); Sodium 137 mmol/L (137-145); Total Protein 6.9 g/dL (6.3-8.2); Triglycerides 68 mg/dL (<150)
[2025-10-15 10:07] LABS: Percent Iron Saturation 38 % (20-50)
[2025-10-15 10:35] LABS: Thyroid Stimulating Hormone Reflex 2.640 uIU/mL (0.465-4.68)
[2025-10-15 10:40] LABS: Ferritin 82.00 ng/mL (11.1-264)
== END 2025-10-15 08:49 | disposition home or self-care (01) ==
PROVIDERS: PCP Family Medicine
DX: M81.0 Age-related osteoporosis without current pathological fracture (principal); Z00.00 Encounter for general adult medical examination without abnormal findings; G45.8 Other transient cerebral ischemic attacks and related syndromes; G47.33 Obstructive sleep apnea (adult) (pediatric); R94.6 Abnormal results of thyroid function studies; D50.9 Iron deficiency anemia, unspecified; Z86.73 Personal history of transient ischemic attack (TIA), and cerebral infarction without residual deficits
CPT/HCPCS: 36415; 80053; 80061; 82728; 83540; 83550; 84443; 85027

== ENCOUNTER 2025-11-11 10:34 | Outpatient (CLI) | payer MEDICARE, SELFPAY ==
--- NOTE | ~2025-11-11 | DEXA_ITS ---
Bone Density Report Name: KRISTOPHER JOHNSON Age: 89 Sex: Male Ethnicity: White Date of : 1935 Indication: osteopenia; height loss; prior fracture; Referring Provider: JEANNIE NETTLES Study: Bone densitometry was performed. Exam Date: November 11, 2025 Accession number: [id number] Bone Density: Region BMD T-score Z-score Classification AP Spine(L1-L4) 0.948 -1.3 0.0 Osteopenia Femoral Neck (Left) 0.714 -1.6 0.1 Osteopenia Total Hip (Left) 0.768 -1.8 -0.5 Osteopenia Femoral Neck (Right) 0.614 -2.3 -0.6 Osteopenia Total Hip (Right) 0.687 -2.3 -1.0 Osteopenia Total Hip Mean 0.727 -2.1 -0.8 Osteopenia World Health Organization criteria for BMD impression classify patients as: Normal (T-score at or above -1.0), Osteopenia (T-score between -1.0 and -2.5), or Osteoporosis (T-score at or below -2.5). 10-year Fracture Risk: FRAX not reported because: Prior hip or vertebral fracture Previous Exams: Region Exam Age BMD T-score BMD Change BMD Change Date g/cm2 vs Baseline vs Previous AP Spine (L1-L4) 11/11/2025 89 0.948 -1.3 -0.019 (-2.0%) -0.019 (-2.0%) 03/14/2023 87 0.967 -1.1 Total Hip(Left) 11/11/2025 89 0.768 -1.8 0.011 (1.5%) 0.011 (1.5%) 03/14/2023 87 0.757 -1.8 Total Hip(Right) 11/11/2025 89 0.687 -2.3 0.006 (0.8%) 0.006 (0.8%) 03/14/2023 87 0.681 -2.3 *Denotes significance at 95% confidence level, LSC for AP Spine = 0.022 g/cm2, LSC for Total Hip = 0.027 g/cm2 Clinical Information Provided by Patient: Have had a previous hip or vertebral fracture Has had a low trauma fracture Has used the following medications: Vitamin D, Calcium Patient maximum height was 74 No regular weight bearing exercise Does not regularly consume dairy products Impression: The patient has low bone mass, based on the Right Total Hip T-score. The patient has risk factors, including: previous fracture. No significant bone loss was observed. Discussion: INCREASED RISK OF FRACTURE DUE TO HISTORY OF LOW TRAUMA FRACTURE. The patient's previous fracture puts the patient at high risk of a future fracture. In untreated patients, the risk of osteoporotic fracture increases approximately two-fold for each 1.0 SD decrease in T-score. Low bone density is not the only risk factor for fracture; also consider factors such as patient's age, frailty or poor health, risk of falling, risk of injury, previous osteoporotic fracture, family history of osteoporosis, cigarette smoking, low body weight, etc. Not everyone with a low trauma fracture has osteoporosis; osteomalacia and other metabolic bone disorders should also be considered. Patients who have osteoporosis should be evaluated for specific diseases and conditions (secondary causes) that may cause or contribute to bone loss and fracture risk. National Osteoporosis Foundation (NOF) recommends pharmacologic intervention for patients with a prior low trauma hip or vertebral fracture regardless of BMD T-score. The patient should follow a healthful lifestyle (good nutrition with adequate calcium and vitamin D, and appropriate weight-bearing exercise). Follow-Up: Consider a repeat BMD and Vertebral Fracture Assessment (VFA) exam in 2 years or sooner if medically necessary, to reassess this patient's status. Reported by: BUCKY on 11/11/2025 11:27:00 AM. Reviewed, dictated and finalized at location A.
--- OUTSIDE RECORDS SUMMARY | 2025-11-11 12:14 | XMS_ITS | Encounter Summary ---
Author Organization [facility] Healthcare Address [address] [place] [address] Care Team Providers Care Weights And Measures Inspector Name Role Phone Darrin Lowery MD Primary Care Provider Encounter Details Date Type Department Care Team (Late st Contact Info) Description 10/31/2024 Orders Only [facility] Health Information Management [address] [place] [address] Scanning, Provider Social History Tobacco Use Types Packs/Day Years Used Date Smoking Tobacco: Never Smokeless Tobacco: Never Alcohol Use Standard Drinks/Week Comments No 0 (1 standard drink = 0.6 oz pur e alcohol) Sex and Gender Information Value Date Recorded Sex Assigned at Not on file Legal Sex Male 12:50 AM CASING MATERIAL WEIGHER Gender Identity Not on file Sexual Orientation [...] on filedocumented in this encounter Care Teams Weights And Measures Inspector Relationship Specialty Start Date End Date Darrin Lowery MD [address] [facility] [address] [place], [place] [id number] PCP - General Family Medicine 11/16/17 documented as of this encounter
--- OUTSIDE RECORDS SUMMARY | 2025-11-11 12:15 | XMS_ITS | Clinical Summary ---
Author Organization [facility] [address] Address [address] [place] [address] Care Team Providers Care Resort Keeper Name Role Phone Darrin Lowery MD Primary Care Provider Allergies No known active allergies Medications zhubh-8-arp-epa -dpa-fish oil 1,050-1,200 mg capsule Take 1 [...] mcg total) by mouth daily Active C,E,zinc,copper 64-niofi2e-rgi 250-5-1 mg capsule Take 1 capsule by [...] needed. Assessment & Plan (12/27/2024 4:04 PM PERSONAL CARE SERVICE PROVIDER): Impression: Patient underwent a carotid duplex at [...] Department Care Team Description 09/24/2025 10:15 AM PERSONAL CARE SERVICE PROVIDER Office Visit [facility] Medical [facility] Cardiology at [address] [place] [address] Humberto Santiago MD History of [...] on file Legal Sex Male 12:50 AM PERSONAL CARE SERVICE PROVIDER Gender Identity Not on file Sexual Orientation Not on file Last Filed Vital Signs Vital Sign Reading Time Taken Comments Blood Pressure 98/58 09/24/2025 10:09 AM PERSONAL CARE SERVICE PROVIDER Pulse 49 09/24/2025 10:09 AM PERSONAL CARE SERVICE PROVIDER Temperature - - Respiratory Rate - - Oxygen Saturation 98% 09/24/2025 10:09 AM PERSONAL CARE SERVICE PROVIDER Inhaled Oxygen Concentration - - Weight 83 kg (183 lb) 09/24/2025 10:09 AM PERSONAL CARE SERVICE PROVIDER Height 182.9 cm (6') 09/24/2025 10:09 AM PERSONAL CARE SERVICE PROVIDER Body Mass Index 24.82 09/24/2025 10:09 AM PERSONAL CARE SERVICE PROVIDER Plan of Treatment Health Maintenance Due Date [...] history exists Insurance [employer] MEDICARE Care Teams Resort Keeper Relationship Specialty Start Date End Date Darrin Lowery MD [address] [place] [address] PCP - General Family Medicine 11/16/17
--- OUTSIDE RECORDS SUMMARY | 2025-11-11 12:15 | XMS_ITS | Clinical Summary ---
Author Organization [facility] Care Team Providers Care Police Lieutenant Patrol Name Role Phone Unavailable Primary Care Provider [...]
--- OUTSIDE RECORDS SUMMARY | 2025-11-11 12:15 | XMS_ITS | Encounter Summary ---
Author Organization [facility] Address [address] [place] [address] Care Team Providers Care Retail Store Clerk Name Role Phone Kristopher Wooten MD Primary Care Provider [phone] Encounter Details Date Type Department Care Team (Late st Contact Info) Description 10/04/2018 Lab Requisition [facility] DermPath Lab [address] [place] [address] Donte Rowland MD [address] [place] [address] Social History Tobacco Use Types Packs/Day Years Used Date Smoking Tobacco: Never Assessed Sex and Gender Information Value Date Recorded Sex Assigned at Not on file Legal Sex Male 5:49 PM ACCIDENT REPORT CLERK Gender Identity Not on file Sexual Orientation Not on file documented as of this encounter Plan of Treatment Not on file documented as of this encounter Procedures Procedure Name Priority Date/Time Associated Diagnosis Comments DERMATOPATHOLOGY Routine 10/03/2018 12:0 0 AM ACCIDENT REPORT CLERK documented in this encounter Results * DERMATOPATHOLOGY (10/03/2018 12:00 AM ACCIDENT REPORT CLERK) Case Report Dermatopathology Report Case: [id number] Authorizing Provider: Donte Rowland MD Collected: 10/03/2018 12:00 AM Pathologist: Alejandra Chase MD Received: 10/04/2018 12:30 PM Specimen: Skin, dorsal right hand 8 2:14 PM ACCIDENT REPORT CLERK DERMATOPATHOLOGY LABORATORY Final Diagnosis Specimen A. 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 The specimen consists of a shave biopsy measuring [id number] mm. Jar 0. 2:14 PM [facility] DERMATOPATHOLOGY LABORATORY Microscopic Description Specimen A. SKIN, dorsal right hand: Sections reveal parakeratosis, acanthosis and keratinocyte dysmaturation which is most prominent in the lower epidermis. Focal nests are present in the dermis. 2:14 PM [facility] DERMATOPATHOLOGY LABORATORY Disclaimer An external and internal positive and negative controls are appropriate for the histochemical, immunohistochemical and immunofluorescence stain(s) in this case (if any), except where stated explicitly. The performance characteristics of the stain(s) cited in this report were developed and its performance characteristic determined by the Dermatopathology Laboratory at [facility]. These tests need not be, and therefore are not, approved by the [place] Food and Drug Administration. The tests are used for clinical purposes. Billing Codes Specimen Charges Stain Charges 67568 1 8 2:14 PM ACCIDENT REPORT CLERK DERMATOPATHOLOGY LABORATORY Embedded Images 2:14 PM ACCIDENT REPORT CLERK DERMATOPATHOLOGY LABORATORY Pathology/Cytolog y TISSUE SPECIMEN FROM SKIN / Unknown 10/03/2018 10/04/2018 12:30 PM ACCIDENT REPORT CLERK Donte Rowland MD LAB - PATHOLOGY/CYTOLOGY ORD ERABLES Final Result DERMATOPATHOLOGY LABORATORY [facility] - Department of Dermatology [address] [place] [address], 5th [place] [address], [facility] [phone] documented in this encounter Visit Diagnoses Not on filedocumented in this encounter Care Teams Retail Store Clerk Relationship Specialty Start Date End Date Kristopher Wooten MD [address] [facility] [address] [place] [address] PCP - General 09/11/09 documented as of this encounter
--- OUTSIDE RECORDS SUMMARY | 2025-11-11 12:15 | XMS_ITS | Encounter Summary ---
Author Organization [facility] Address [address] [place] [address] Care Team Providers Care Technical Services Analyst Name Role Phone Kristopher Wooten MD Primary Care Provider [phone] Encounter Details Date Type Department Care Team (Late st Contact Info) Description 10/26/2018 Lab Requisition [facility] DermPath Lab [address] [place] [address] Donte Rowland MD [address] [place] [address] Social History Tobacco Use Types Packs/Day Years Used Date Smoking Tobacco: Never Assessed Sex and Gender Information Value Date Recorded Sex Assigned at Not on file 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 Gender Identity Not on file Sexual Orientation Not on file documented as of this encounter Plan of Treatment Not on file documented as of this encounter Procedures Procedure Name Priority Date/Time Associated Diagnosis Comments DERMATOPATHOLOGY Routine 10/25/2018 12:0 0 AM SALES NEGOTIATOR documented in this encounter Results * DERMATOPATHOLOGY (10/25/2018 12:00 AM SALES NEGOTIATOR) Case Report Dermatopathology Report Case: [id number] Authorizing Provider: Donte Rowland MD Collected: 10/25/2018 12:00 AM Pathologist: Joyce Simon MD Received: 10/26/2018 12:48 PM Specimen: Skin, dorsal right hand 8 5:13 PM SALES NEGOTIATOR DERMATOPATHOLOGY LABORATORY Final Diagnosis Specimen A. 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 Previous Bx: [id number]. 8 5:13 PM [facility] DERMATOPATHOLOGY LABORATORY Gross Description Specimen A: Received is one formalin filled container labeled with the patient's name and designated dorsal right hand. The specimen consists of a curettage and desiccation biopsy measuring [id number]. Jar 0. 8 5:13 PM [facility] DERMATOPATHOLOGY LABORATORY Microscopic Description Specimen A. [...] base of the specimen. 8 5:13 PM [facility] DERMATOPATHOLOGY LABORATORY Disclaimer An external and internal positive and negative controls are appropriate for the histochemical, immunohistochemical and immunofluorescence stain(s) in this case (if any), except where stated explicitly. The performance characteristics of the stain(s) cited in this report were developed and its performance characteristic determined by the Dermatopathology Laboratory at [facility]. These tests need not be, and therefore are not, approved by the [place] Food and Drug Administration. The tests are used for clinical purposes. Billing Codes Specimen Charges Stain Charges 23469 1 8 5:13 PM [facility] DERMATOPATHOLOGY LABORATORY Embedded Images 8 5:13 PM [facility] DERMATOPATHOLOGY LABORATORY Pathology/Cytolog y TISSUE SPECIMEN FROM SKIN / Unknown 10/25/2018 10/26/2018 12:48 PM [facility] Donte Rowland MD LAB - PATHOLOGY/CYTOLOGY ORD ERABLES Final Result DERMATOPATHOLOGY LABORATORY [facility] - Department of Dermatology [address] [place] [address], 5th [place] [address], [facility] [phone] documented in this encounter Visit Diagnoses Not on filedocumented in this encounter Care Teams Technical Services Analyst Relationship Specialty Start Date End Date Kristopher Wooten MD [address] [facility] [address] [facility] [address] [place] [phone] PCP - General 09/11/09 documented as of this encounter
--- OUTSIDE RECORDS SUMMARY | 2025-11-11 12:15 | XMS_ITS | Clinical Summary ---
Author Organization [facility] Raquel nayak Anaoanhmontez Address [address] [place] [address] Care Team Providers Care Supervisor Wool Shearing Name Role Phone Darrin Lowery MD Primary Care Provider [phone] Allergies No known active allergies Medications alendronate [...] Encounters Date Type Department Care Team Description 10/22/2025 External Device Data [facility]CTION Provider, Abstract 10/22/2025 External Device Data [facility] Provider, Abstract [...] 08/29/2024 1:38 PM CDT Plan of Treatment Health Maintenance Due Date Last Done Comments RSV VACCINE (60+ or ) (1 - 1-dose 75+ series) 2011 INFLUENZA VACCINE (#1) 2025 COVID-19 Vaccine (3 - 2024- season) 07/22/202502/2021, 12/04/2020 DTAP/TDAP/TD VACCINES (2 - Td or Tdap) 07/19/2029 PNEUMOCOCCAL VACCINE 50+ YEARS Completed 09/21/2015 , 12/22/2007 ZOSTER VACCINE Completed 06/21/2018, 01/19/2018 Insurance AETNA PPO MCR Care Teams Supervisor Wool Shearing Relationship Specialty Start Date End Date Darrin Lowery MD [address] [facility] [address] [place] [address] PCP - General Family Practice 09/06/24
--- OUTSIDE RECORDS SUMMARY | 2025-11-11 12:15 | XMS_ITS | Encounter Summary ---
Author Organization [facility] Healthcare Address [address] [place] [address] Care Team Providers Care Wall Crane Operator Name Role Phone Darrin Lowery MD Primary Care Provider Encounter Details Date Type Department Care Team (Late st Contact Info) Description 12/12/2024 Orders Only [facility] Health Information Management [address] [place] [address] Scanning, Provider Social History Tobacco Use Types Packs/Day Years Used Date Smoking Tobacco: Never Smokeless Tobacco: Never Alcohol Use Standard Drinks/Week Comments No 0 (1 standard drink = 0.6 oz pur e alcohol) Sex and Gender Information Value Date Recorded Sex Assigned at Not on file 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
--- OUTSIDE RECORDS SUMMARY | 2025-11-11 12:15 | XMS_ITS | Clinical Summary ---
Author Organization [facility] Address [address] [facility] [place] [address] Care Team Providers Care Parole Hearing Officer Name Role Phone Kristopher Wooten MD Primary Care Provider [phone] Source Comments [facility],non-owned Affiliates and Associated Physician Practices is amultiple site organization consisting of ambulatory clinics and hospital sitesin [place], [place], [place] and [place]. This disclosure is being madepursuant to the Care Everywhere program and may not contain all information available regarding this patient. 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
== END 2025-11-11 10:35 | disposition home or self-care (01) ==
PROVIDERS: PCP Family Medicine
DX: R29.890 Loss of height (principal); Z87.81 Personal history of (healed) traumatic fracture; M85.88 Other specified disorders of bone density and structure, other site; M85.852 Other specified disorders of bone density and structure, left thigh; M85.851 Other specified disorders of bone density and structure, right thigh
CPT/HCPCS: 77080